=== PATIENT | male | born 1960 ===

== ENCOUNTER 2021-03-26 17:16 | Inpatient (IN) | payer SELFPAY ==
[~2021-03-26] VITALS: Ht 172.7 cm; Wt 157.2 kg
[2021-03-26] VITALS (13 sets, daily range): BP systolic 70–110; BP diastolic 42–56
[2021-03-26] MEDS: IV NORMAL SALINE 1000ML BAG 1,000 ML IV SCH ×2 (17:15→22:24)
[2021-03-26] MEDS: NOREPINEPHRINE VIAL 32 MG in IV D5W 250ML IV PRN ×2 (17:15→21:18)
[2021-03-26] MEDS: EPINEPHrine VIAL 5 MG in IV NORMAL SALINE 250ML 250 ML IV PRN ×2 (17:15→21:11)
[2021-03-26] MEDS ORDERED: SODIUM BICARB ADULT 8.4% 50 MEQ/50 ML DISP.SYRIN. IV ONE (17:30)
[2021-03-26] MEDS ORDERED: IV NORMAL SALINE 1000ML BAG 1,000 ML IV SCH (17:30)
[2021-03-26] MEDS ORDERED: NOREPINEPHRINE VIAL 8 MG in IV DEXTROSE 5% 250 ML IV PRN (17:30)
[2021-03-26] MEDS ORDERED: SODIUM BICARBONATE VIAL 50 MEQ in IV 1/2 NORMAL SALINE 1,000 ML IV PRN (17:30)
[2021-03-26 17:45] LABS: BASE EXCESS ABG -17 mmol/L (-3-3); CORRECTED PCO2 ABG 38 mmHg; CORRECTED PH ABG 7.12; CORRECTED PO2 ABG 67 mmHg; HCO3 ABG 12 mmol/L (21-28); SAT O2 ABG 93 % (92-99)
[2021-03-26] MEDS: VASOPRESSIN - VASOSTRICT 20 UNIT in IV DEXTROSE 5% 100ML 100 ML IV PRN (17:58)
[2021-03-26] MEDS ORDERED: MIDAZOLAM HCL/PF 5 MG/5 ML VIAL. IV ONE (18:00)
[2021-03-26] MEDS ORDERED: SODIUM BICARBONATE VIAL 100 MEQ in IV 1/2 NORMAL SALINE 1,000 ML IV PRN (18:00)
[2021-03-26 18:09] LABS: PCO2 ABG 42 mmHg (35-46)
[2021-03-26 18:10] LABS: FIO2 ABG 85%; PO2 ABG 79 mmHg (65-108)
[2021-03-26] MEDS: INSULIN REGULAR VIAL 100 UNIT in IV NORMAL SALINE 100ML 100 ML IV PRN (18:20)
--- NOTE | 2021-03-26 18:35 | NUR ---
1715 Received pt via EMS from [place]. Pt intubated with ETT in placed. Pt unresponsive. Arrived with the following gtts running: Epi at 0.1 mcg/kg/min, Levo at 1 mcg/kg/min, Insulin at 15 units / hour and NS wide open. Pt transferred over to our bed and attached to engine monitor, and vent. OG placed with positive gastric return. Srivastava in place with minimal output. no family listed. Completed as much of the admission questions as possible .
[2021-03-26 18:38] LABS: BASO % 0 % (0-3); EOS % 0 % (0-3); HEMATOCRIT 36.1 % (39.0-53.0); HEMOGLOBIN 11.1 g/dL (13.0-17.5); LYMPH # 0.9 x10^3/uL (1.0-4.8); LYMPH % 8 % (24-48); MEAN CORPUSCULAR HEMOGLOBIN 32 pg (25-35); MEAN CORPUSCULAR HGB CONC 31 g/dL (31-37); MEAN CORPUSCULAR VOLUME 102 fL (79-100); MONO # 0.1 x10^3/uL (0.0-1.1); MONO % 1 % (0-9); NEUT # 10.8 x10^3/uL (1.8-7.7); NEUT % 91 % (31-73); PLATELET COUNT 171 x10^3/uL (140-400); RED BLOOD COUNT 3.52 x10^6/uL (4.30-5.70); RED CELL DISTRIBUTION WIDTH 15.5 % (11.5-14.5); WHITE BLOOD COUNT 11.9 x10^3/uL (4.0-11.0)
[2021-03-26 19:01] LABS: CALCIUM 7.6 mg/dL (8.5-10.1); CREATININE 4.7 mg/dL (0.7-1.3); GFR 12.7
[2021-03-26 19:08] LABS: PHOSPHORUS 12.1 mg/dL (2.6-4.7)
[2021-03-26 19:09] LABS: POTASSIUM 6.3 mmol/L (3.5-5.1)
[2021-03-26 19:50] LABS: % BANDS 8 % (0-9); % LYMPHS 13 % (24-48); % METAS 1 % (0-0); % MONOS 1 % (0-10); % SEGS 77 % (35-66); PLT ESTIMATE ADEQUATE (ADEQUATE); TOXIC GRANULATION SLIGHT
[2021-03-26 23:33] LABS: CALCIUM 7.2 mg/dL (8.5-10.1); CREATININE 4.8 mg/dL (0.7-1.3); GFR 12.4; MAGNESIUM 2.7 mg/dL (1.8-2.4); PHOSPHORUS 5.2 mg/dL (2.6-4.7); POTASSIUM 4.6 mmol/L (3.5-5.1)
--- NOTE | 2021-03-26 23:46 | NUR ---
Patient in DKA and sedated after coding multiple times earlier today in [facility] ER. Transferred to [facility] ICU, Dr. Jiménez is primary. Dr. Menon, Dr. Buchanan, Dr. Pickering, and Dr. Green notified. Will see patient in the AM.
[2021-03-27] VITALS (31 sets, daily range): BP systolic 58–148; BP diastolic 31–67
[2021-03-27] MEDS: VASOPRESSIN - VASOSTRICT 20 UNIT in IV DEXTROSE 5% 100ML 100 ML IV PRN ×2 (00:03→07:25)
[2021-03-27] MEDS: EPINEPHrine VIAL 10 MG in IV NORMAL SALINE 250ML IV PRN ×6 (00:22→10:56)
[2021-03-27] MEDS: NOREPINEPHRINE VIAL 32 MG in IV D5W 250ML IV PRN ×4 (00:30→09:37)
--- NOTE | 2021-03-27 01:36 | RAD ---
EXAMINATION: XR CHEST 1V CLINICAL HISTORY: Low oxygen saturation, ET tube/OG tube placement EXAM DATE/TIME: 03/27/2021 12:42 AM COMPARISON: 03/26/2021 FINDINGS: Lines, Tubes, and Devices: Endotracheal and enteric tubes remain in similar satisfactory positions. Cardiomediastinal Silhouette: Cardiomegaly. Lungs and Pleura: Increased ill-defined centrilobular opacities, greater on the right. No evidence of pleural effusion or pneumothorax. Bones and Soft Tissues: Degenerative changes in the thoracic spine. IMPRESSION: Increased bilateral central airspace disease, greater on the right. Electronically signed by: Angelo Farfan DO (03/27/2021 1:33 AM) ANDREA
[2021-03-27] MEDS: IV NORMAL SALINE 1000ML BAG 1,000 ML IV SCH ×3 (01:39→09:05)
[2021-03-27] MEDS ORDERED: FUROSEMIDE 40 MG/4 ML VIAL. IVP ONE (02:15)
[2021-03-27] MEDS: INSULIN REGULAR VIAL 100 UNIT in IV NORMAL SALINE 100ML 100 ML IV PRN ×3 (03:09→09:43)
[2021-03-27 04:41] LABS: BASO % 0 % (0-3); EOS % 1 % (0-3); HEMATOCRIT 34.2 % (39.0-53.0); HEMOGLOBIN 10.3 g/dL (13.0-17.5); LYMPH # 0.5 x10^3/uL (1.0-4.8); LYMPH % 14 % (24-48); MEAN CORPUSCULAR HEMOGLOBIN 31 pg (25-35); MEAN CORPUSCULAR HGB CONC 30 g/dL (31-37); MEAN CORPUSCULAR VOLUME 103 fL (79-100); MONO # 0.1 x10^3/uL (0.0-1.1); MONO % 4 % (0-9); NEUT # 2.6 x10^3/uL (1.8-7.7); NEUT % 81 % (31-73); PLATELET COUNT 131 x10^3/uL (140-400); RED BLOOD COUNT 3.31 x10^6/uL (4.30-5.70); RED CELL DISTRIBUTION WIDTH 14.6 % (11.5-14.5); WHITE BLOOD COUNT 3.2 x10^3/uL (4.0-11.0)
[2021-03-27 05:12] LABS: ALBUMIN 1.7 g/dL (3.4-5.0); ALBUMIN/GLOBULIN RATIO 0.7 (1.0-1.7); CALCIUM 6.8 mg/dL (8.5-10.1); CREATININE 5.2 mg/dL (0.7-1.3); GFR 11.3; MAGNESIUM 2.5 mg/dL (1.8-2.4); PHOSPHORUS 4.9 mg/dL (2.6-4.7); POTASSIUM 4.6 mmol/L (3.5-5.1); TOTAL BILIRUBIN 2.6 mg/dL (0.2-1.0); TOTAL PROTEIN 4.2 g/dL (6.4-8.2)
--- NOTE | 2021-03-27 08:12 | PDOC1 ---
History and Physical Date of Service: DOS: DATE: 03/27/21 TIME: 08:02 Chief Complaint: Chief Complain: Cardiac arrest History of Present Illness: HPI: Patient is a 60-year-old male with past medical history of CAD, hypertension, dyslipidemia, diabetes who arrived at [facility] ER status post code and ongoing resuscitation. EMS was called at an apartment by a program development manager for an unwitnessed arrest with last known well time being about 40 minutes before EMS arrived. Apparently, the manager of digital noticed leaking water under the door and they were knocking on the door for about 35 minutes without response. Patient was found down and unresponsive and PEA. ACLS was started. Epinephrine was given 5 times and lactated Ringer's was given. Patient had ROSC obtained while in the ambulance and after 2 minutes of ROSC he went into V. fib and 3 times shocks was given and ROSC he was developed again. Upon arrival in the ED patient was kept on multiple vasopressors and family was contacted without any success. Upon arrival to [facility], patient was on multiple vasopressors, no appropriate response, no sedation, intubated on mechanical vent and very acidotic with multiorgan failure. Once again no family was able to be contacted. Past Medical/Surgical History: PMH/PSH: Cardiovascular: HTN, Hyperlipidemia Hepatobiliary: Cholelithiasis Endocrine: Diabetes Allergies: Allergies: Coded Allergies: Unable to Assess (Unverified , 03/26/21) Family History: Family History: Unable to obtain due to sedation and intubated. Reviewed in the chart with no relevant findings Social History: Social History: Unable to obtain due to sedation and intubated Current Medications: Current Medications Current Medications Norepinephrine Bitartrate 8 mg/ Dextrose 258 ml @ 29.606 mls/ hr CONT PRN IV PER PROTOCOL; Start 03/26/21 at 17:30; Status UNV Epinephrine HCl 5 mg/Sodium Chloride 255 ml @ 46.818 mls/ hr CONT PRN IV SEE I/O RECORD Last administered on 03/26/21at 21:11; Start 03/26/21 at 17:30; Stop 03/27/21 at 00:09; Status DC Norepinephrine Bitartrate 32 mg/ Dextrose 250 ml @ 4.688 mls/ hr CONT PRN IV SEE I/O RECORD Last administered on 03/27/21at 07:25; Start 03/26/21 at 17:45 Sodium Bicarbonate (Sodium Bicarb Adult 8.4% Syr) 100 meq 1X ONCE IV Last administered on 03/26/21at 17:30; Start 03/26/21 at 17:30; Stop 03/26/21 at 17:35; Status DC Sodium Chloride 1,000 ml @ 1,000 mls/hr Q1H IV Last administered on 03/26/21at 17:56; Start 03/26/21 at 17:30; Stop 03/26/21 at 18:29; Status DC Sodium Chloride 1,000 ml @ 250 mls/hr Q4H IV Last administered on 03/27/21at 04:14; Start 03/26/21 at 17:45 Insulin Human Regular 100 unit/ Sodium Chloride 101 ml @ 0 mls/hr CONT PRN PRN IV PER PROTOCOL Last administered on 03/27/21at 07:24; Start 03/26/21 at 17:30 Sodium Bicarbonate 50 meq/Sodium Chloride 1,050 ml @ 500 mls/hr Q2H6M PRN IV SEE COMMENTS; Start 03/26/21 at 17:30; Stop 03/26/21 at 17:46; Status DC Vasopressin 20 unit/Dextrose 101 ml @ 12 mls/hr CONT PRN IV SEE I/O RECORD Last administered on 03/27/21at 07:25; Start 03/26/21 at 17:45 Sodium Bicarbonate 100 meq/Sodium Chloride 1,100 ml @ 100 mls/hr Q11H PRN IV SEE COMMENTS; Start 03/26/21 at 18:00 Midazolam HCl (Versed) 5 mg 1X ONCE IV Last administered on 03/26/21at 17:57; Start 03/26/21 at 18:00; Stop 03/26/21 at 18:01; Status DC Epinephrine HCl 10 mg/Sodium Chloride 250 ml @ 22.95 mls/ hr CONT PRN IV SEE I/O RECORD Last administered on 03/27/21at 07:23; Start 03/27/21 at 00:15 Furosemide (Lasix) 60 mg 1X ONCE IVP Last administered on 03/27/21at 02:11; Start 03/27/21 at 02:15; Stop 03/27/21 at 02:16; Status DC ROS: Review of Systems Review of System Unable to obtain due to sedation and intubated Physical Exam: Vital Signs: Vital Signs Date Time Temp Pulse Resp B/P (MAP) Pulse Ox O2 Delivery O2 Flow Rate FiO2 03/27/21 06:00 99.7 104 30 83/52 93 Ventilator 99.7 Physcial Exam: General: Sedated and intubated HEENT: Pupils equal and fixed, EOMI, no discharge, normal conjunctiva Neck: Supple, no nuchal rigidity, no JVD, trachea midline, no tenderness Cardiac: RRR, no murmurs, no gallops, no rubs Chest/Lungs: CTAB, no wheeze, no rhonchi, no crackles Abdomen: Soft, distended, obese, hypoactive bowel sounds Back: No step-offs or deformities Extremities: +3 pedal edema Neuro: Sedated and intubated Labs: Labs: Laboratory Tests Test 03/26/21 17:30 03/26/21 18:03 03/26/21 20:09 03/26/21 21:16 O2 Saturation 93 % (92-99) Arterial Blood pH 7.09 (7.35-7.45) Arterial Blood pH (Temp corrected) 7.12 Arterial Blood pCO2 at Patient Temp 42 mmHg (35-46) Arterial Blood pCO2 (Temp correct) 38 mmHg Arterial Blood pO2 at Patient Temp 79 mmHg (65-108) Arterial Blood pO2 (Temp corrected) 67 mmHg Arterial Blood HCO3 12 mmol/L (21-28) Arterial Blood Base Excess -17 mmol/L (-3-3) FiO2 85% White Blood Count 11.9 x10^3/uL (4.0-11.0) Red Blood Count 3.52 x10^6/uL (4.30-5.70) Hemoglobin 11.1 g/dL (13.0-17.5) Hematocrit 36.1 % (39.0-53.0) Mean Corpuscular Volume 102 fL (79-100) Mean Corpuscular Hemoglobin 32 pg (25-35) Mean Corpuscular Hemoglobin Concent 31 g/dL (31-37) Red Cell Distribution Width 15.5 % (11.5-14.5) Platelet Count 171 x10^3/uL (140-400) Neutrophils (%) (Auto) 91 % (31-73) Lymphocytes (%) (Auto) 8 % (24-48) Monocytes (%) (Auto) 1 % (0-9) Eosinophils (%) (Auto) 0 % (0-3) Basophils (%) (Auto) 0 % (0-3) Neutrophils # (Auto) 10.8 x10^3/uL (1.8-7.7) Lymphocytes # (Auto) 0.9 x10^3/uL (1.0-4.8) Monocytes # (Auto) 0.1 x10^3/uL (0.0-1.1) Eosinophils # (Auto) 0.0 x10^3/uL (0.0-0.7) Basophils # (Auto) 0.0 x10^3/uL (0.0-0.2) Segmented Neutrophils % 77 % (35-66) Band Neutrophils % 8 % (0-9) Lymphocytes % 13 % (24-48) Monocytes % 1 % (0-10) Metamyelocytes % 1 % (0-0) Toxic Granulation Slight Platelet Estimate Adequate (ADEQUATE) Sodium Level 133 mmol/L (136-145) Potassium Level 6.3 mmol/L (3.5-5.1) Chloride Level 93 mmol/L (98-107) Carbon Dioxide Level 15 mmol/L (21-32) Anion Gap 25 (6-14) Blood Urea Nitrogen 61 mg/dL (8-26) Creatinine 4.7 mg/dL (0.7-1.3) Estimated GFR (Cockcroft-Gault) 12.7 Glucose Level 695 mg/dL (70-99) Calcium Level 7.6 mg/dL (8.5-10.1) Phosphorus Level 12.1 mg/dL (2.6-4.7) Magnesium Level 3.0 mg/dL (1.8-2.4) Glucose (Fingerstick) 585 mg/dL (70-99) 503 mg/dL (70-99) Test 03/26/21 23:00 03/27/21 00:44 03/27/21 02:08 03/27/21 03:24 Sodium Level 134 mmol/L (136-145) Potassium Level 4.6 mmol/L (3.5-5.1) Chloride Level 96 mmol/L (98-107) Carbon Dioxide Level 16 mmol/L (21-32) Anion Gap 22 (6-14) Blood Urea Nitrogen 67 mg/dL (8-26) Creatinine 4.8 mg/dL (0.7-1.3) Estimated GFR (Cockcroft-Gault) 12.4 Glucose Level 610 mg/dL (70-99) Calcium Level 7.2 mg/dL (8.5-10.1) Phosphorus Level 5.2 mg/dL (2.6-4.7) Magnesium Level 2.7 mg/dL (1.8-2.4) Glucose (Fingerstick) 413 mg/dL (70-99) 446 mg/dL (70-99) 391 mg/dL (70-99) Test 03/27/21 04:20 03/27/21 04:31 03/27/21 06:41 03/27/21 07:45 White Blood Count 3.2 x10^3/uL (4.0-11.0) Red Blood Count 3.31 x10^6/uL (4.30-5.70) Hemoglobin 10.3 g/dL (13.0-17.5) Hematocrit 34.2 % (39.0-53.0) Mean Corpuscular Volume 103 fL (79-100) Mean Corpuscular Hemoglobin 31 pg (25-35) Mean Corpuscular Hemoglobin Concent 30 g/dL (31-37) Red Cell Distribution Width 14.6 % (11.5-14.5) Platelet Count 131 x10^3/uL (140-400) Neutrophils (%) (Auto) 81 % (31-73) Lymphocytes (%) (Auto) 14 % (24-48) Monocytes (%) (Auto) 4 % (0-9) Eosinophils (%) (Auto) 1 % (0-3) Basophils (%) (Auto) 0 % (0-3) Neutrophils # (Auto) 2.6 x10^3/uL (1.8-7.7) Lymphocytes # (Auto) 0.5 x10^3/uL (1.0-4.8) Monocytes # (Auto) 0.1 x10^3/uL (0.0-1.1) Eosinophils # (Auto) 0.0 x10^3/uL (0.0-0.7) Basophils # (Auto) 0.0 x10^3/uL (0.0-0.2) Sodium Level 136 mmol/L (136-145) Potassium Level 4.6 mmol/L (3.5-5.1) Chloride Level 101 mmol/L (98-107) Carbon Dioxide Level 12 mmol/L (21-32) Anion Gap 23 (6-14) Blood Urea Nitrogen 68 mg/dL (8-26) Creatinine 5.2 mg/dL (0.7-1.3) Estimated GFR (Cockcroft-Gault) 11.3 BUN/Creatinine Ratio 13 (6-20) Glucose Level 417 mg/dL (70-99) Lactic Acid Level 12.0 mmol/L (0.4-2.0) Calcium Level 6.8 mg/dL (8.5-10.1) Phosphorus Level 4.9 mg/dL (2.6-4.7) Magnesium Level 2.5 mg/dL (1.8-2.4) Total Bilirubin 2.6 mg/dL (0.2-1.0) Aspartate Amino Transf (AST/SGOT) 5590 U/L (15-37) Alanine Aminotransferase (ALT/SGPT) 1605 U/L (16-63) Alkaline Phosphatase 118 U/L (46-116) Total Protein 4.2 g/dL (6.4-8.2) Albumin 1.7 g/dL (3.4-5.0) Albumin/Globulin Ratio 0.7 (1.0-1.7) Glucose (Fingerstick) 437 mg/dL (70-99) 321 mg/dL (70-99) 271 mg/dL (70-99) Laboratory Tests Test 03/26/21 17:30 03/26/21 18:03 03/26/21 20:09 03/26/21 21:16 O2 Saturation 93 % (92-99) Arterial Blood pH 7.09 (7.35-7.45) Arterial Blood pH (Temp corrected) 7.12 Arterial Blood pCO2 at Patient Temp 42 mmHg (35-46) Arterial Blood pCO2 (Temp correct) 38 mmHg Arterial Blood pO2 at Patient Temp 79 mmHg (65-108) Arterial Blood pO2 (Temp corrected) 67 mmHg Arterial Blood HCO3 12 mmol/L (21-28) Arterial Blood Base Excess -17 mmol/L (-3-3) FiO2 85% White Blood Count 11.9 x10^3/uL (4.0-11.0) Red Blood Count 3.52 x10^6/uL (4.30-5.70) Hemoglobin 11.1 g/dL (13.0-17.5) Hematocrit 36.1 % (39.0-53.0) Mean Corpuscular Volume 102 fL (79-100) Mean Corpuscular Hemoglobin 32 pg (25-35) Mean Corpuscular Hemoglobin Concent 31 g/dL (31-37) Red Cell Distribution Width 15.5 % (11.5-14.5) Platelet Count 171 x10^3/uL (140-400) Neutrophils (%) (Auto) 91 % (31-73) Lymphocytes (%) (Auto) 8 % (24-48) Monocytes (%) (Auto) 1 % (0-9) Eosinophils (%) (Auto) 0 % (0-3) Basophils (%) (Auto) 0 % (0-3) Neutrophils # (Auto) 10.8 x10^3/uL (1.8-7.7) Lymphocytes # (Auto) 0.9 x10^3/uL (1.0-4.8) Monocytes # (Auto) 0.1 x10^3/uL (0.0-1.1) Eosinophils # (Auto) 0.0 x10^3/uL (0.0-0.7) Basophils # (Auto) 0.0 x10^3/uL (0.0-0.2) Segmented Neutrophils % 77 % (35-66) Band Neutrophils % 8 % (0-9) Lymphocytes % 13 % (24-48) Monocytes % 1 % (0-10) Metamyelocytes % 1 % (0-0) Toxic Granulation Slight Platelet Estimate Adequate (ADEQUATE) Sodium Level 133 mmol/L (136-145) Potassium Level 6.3 mmol/L (3.5-5.1) Chloride Level 93 mmol/L (98-107) Carbon Dioxide Level 15 mmol/L (21-32) Anion Gap 25 (6-14) Blood Urea Nitrogen 61 mg/dL (8-26) Creatinine 4.7 mg/dL (0.7-1.3) Estimated GFR (Cockcroft-Gault) 12.7 Glucose Level 695 mg/dL (70-99) Calcium Level 7.6 mg/dL (8.5-10.1) Phosphorus Level 12.1 mg/dL (2.6-4.7) Magnesium Level 3.0 mg/dL (1.8-2.4) Glucose (Fingerstick) 585 mg/dL (70-99) 503 mg/dL (70-99) Test 03/26/21 23:00 03/27/21 00:44 03/27/21 02:08 03/27/21 03:24 Sodium Level 134 mmol/L (136-145) Potassium Level 4.6 mmol/L (3.5-5.1) Chloride Level 96 mmol/L (98-107) Carbon Dioxide Level 16 mmol/L (21-32) Anion Gap 22 (6-14) Blood Urea Nitrogen 67 mg/dL (8-26) Creatinine 4.8 mg/dL (0.7-1.3) Estimated GFR (Cockcroft-Gault) 12.4 Glucose Level 610 mg/dL (70-99) Calcium Level 7.2 mg/dL (8.5-10.1) Phosphorus Level 5.2 mg/dL (2.6-4.7) Magnesium Level 2.7 mg/dL (1.8-2.4) Glucose (Fingerstick) 413 mg/dL (70-99) 446 mg/dL (70-99) 391 mg/dL (70-99) Test 03/27/21 04:20 03/27/21 04:31 03/27/21 06:41 03/27/21 07:45 White Blood Count 3.2 x10^3/uL (4.0-11.0) Red Blood Count 3.31 x10^6/uL (4.30-5.70) Hemoglobin 10.3 g/dL (13.0-17.5) Hematocrit 34.2 % (39.0-53.0) Mean Corpuscular Volume 103 fL (79-100) Mean Corpuscular Hemoglobin 31 pg (25-35) Mean Corpuscular Hemoglobin Concent 30 g/dL (31-37) Red Cell Distribution Width 14.6 % (11.5-14.5) Platelet Count 131 x10^3/uL (140-400) Neutrophils (%) (Auto) 81 % (31-73) Lymphocytes (%) (Auto) 14 % (24-48) Monocytes (%) (Auto) 4 % (0-9) Eosinophils (%) (Auto) 1 % (0-3) Basophils (%) (Auto) 0 % (0-3) Neutrophils # (Auto) 2.6 x10^3/uL (1.8-7.7) Lymphocytes # (Auto) 0.5 x10^3/uL (1.0-4.8) Monocytes # (Auto) 0.1 x10^3/uL (0.0-1.1) Eosinophils # (Auto) 0.0 x10^3/uL (0.0-0.7) Basophils # (Auto) 0.0 x10^3/uL (0.0-0.2) Sodium Level 136 mmol/L (136-145) Potassium Level 4.6 mmol/L (3.5-5.1) Chloride Level 101 mmol/L (98-107) Carbon Dioxide Level 12 mmol/L (21-32) Anion Gap 23 (6-14) Blood Urea Nitrogen 68 mg/dL (8-26) Creatinine 5.2 mg/dL (0.7-1.3) Estimated GFR (Cockcroft-Gault) 11.3 BUN/Creatinine Ratio 13 (6-20) Glucose Level 417 mg/dL (70-99) Lactic Acid Level 12.0 mmol/L (0.4-2.0) Calcium Level 6.8 mg/dL (8.5-10.1) Phosphorus Level 4.9 mg/dL (2.6-4.7) Magnesium Level 2.5 mg/dL (1.8-2.4) Total Bilirubin 2.6 mg/dL (0.2-1.0) Aspartate Amino Transf (AST/SGOT) 5590 U/L (15-37) Alanine Aminotransferase (ALT/SGPT) 1605 U/L (16-63) Alkaline Phosphatase 118 U/L (46-116) Total Protein 4.2 g/dL (6.4-8.2) Albumin 1.7 g/dL (3.4-5.0) Albumin/Globulin Ratio 0.7 (1.0-1.7) Glucose (Fingerstick) 437 mg/dL (70-99) 321 mg/dL (70-99) 271 mg/dL (70-99) Images: Images PROCEDURE: PORTABLE CHEST 1V EXAMINATION: XR CHEST 1V CLINICAL HISTORY: Low oxygen saturation, ET tube/OG tube placement EXAM DATE/TIME: 03/27/2021 12:42 AM COMPARISON: 03/26/2021 FINDINGS: Lines, Tubes, and Devices: Endotracheal and enteric tubes remain in similar satisfactory positions. Cardiomediastinal Silhouette: Cardiomegaly. Lungs and Pleura: Increased ill-defined centrilobular opacities, greater on the right. No evidence of pleural effusion or pneumothorax. Bones and Soft Tissues: Degenerative changes in the thoracic spine. IMPRESSION: Increased bilateral central airspace disease, greater on the right. Assessment/Plan Assessment/Plan Septic shock Cardiogenic shock Status post cardiac arrest, at least 1 hour until ROSC Acute respiratory failure requiring intubation Bilateral pneumonia right greater than left, gram-negative organisms, possible aspiration Hemodynamically unstable V. tach/V. fib DKA Anion gap metabolic acidosis LISSETTE due to vasomotor nephropathy Acute electrolyte derangementshyponatremia, hypochloremia, hypermagnesemia, hypocalcemia due to abnormal renal function Severe transaminitis due to shock liver Lactic acidosis Admit to ICU for further management Neurology consult for neuro examination after hypothermia protocol Cardiology consult for V. tach/V. fib management Nephrology consult for LISSETTE Pulmonology consult for vent management ABG on admission pending urine and blood ketones Pending plasma osmolarity Continue serial inspections and examination for sources that caused ketoacidotic state Continue IV insulin starting at 0.1 units per kg When glucose is less than 200, AG is closed, patient able to eat, and HCO3 greater than 15, then transition with subcu insulin 0.1 units/kg every 2 hours for at least 2 hours Continue IV fluids of 1 to 1.5 L/h until a total of 5 L is replenished Switch to one half NS at half the rate if NA is normal or elevated As needed D50 W or add D5 to IV fluids if Accu-Cheks are less than 200 Maintain potassium between 3.5-5, if potassium falls below 3.3, stop insulin and add 40 mEq/h of potassium Maintained p.o. 3 greater than 1.0 If arterial pH is below 6.9, give 100 mEq of sodium bicarb +20 mEq of potassium Every 2-4 hours BMP and a be checked until stable Every hour Accu-Cheks while on insulin Will consider starting tube feeds at trickle rate after vasopressors have been reduced or stopped SCD and heparin once all bleeding has been ruled out for DVT prophylaxis Protonix for stress ulcer GI prophylaxis N.p.o. CODE STATUS unknown Discussed with RN and SW Disposition pending hypothermia protocol to complete and doing apnea test DPOA: Undesignated and unknown A total of 55 minutes of critical care time was spent in reviewing chart, labs, and images. Discussed with RN and SW. very poor prognosis Justifications for Admission Other Justification ELLI FOSTER MD Mar 27, 2021 08:12
[2021-03-27] MEDS ORDERED: SODIUM BICARB ADULT 8.4% 50 MEQ/50 ML DISP.SYRIN. ONE (08:35)
[2021-03-27] MEDS ORDERED: SODIUM BICARB ADULT 8.4% 50 MEQ/50 ML DISP.SYRIN. IV ONE ×3 (08:45→10:45)
[2021-03-27] MEDS: PHENYLEPHRINE INJ 50 MG in IV NORMAL SALINE 250ML 250 ML IV PRN ×2 (08:47→11:43)
--- NOTE | 2021-03-27 08:49 | PDOC ---
PULMONARY PROGRESS NOTES DATE: 03/27/21 TIME: 08:49 Vitals Vital Signs Date Time Temp Pulse Resp B/P (MAP) Pulse Ox O2 Delivery O2 Flow Rate FiO2 03/27/21 06:00 99.7 104 30 83/52 93 Ventilator 99.7 Labs Laboratory Tests Test 03/26/21 17:30 03/26/21 18:03 03/26/21 20:09 03/26/21 21:16 O2 Saturation 93 % (92-99) Arterial Blood pH 7.09 (7.35-7.45) Arterial Blood pH (Temp corrected) 7.12 Arterial Blood pCO2 at Patient Temp 42 mmHg (35-46) Arterial Blood pCO2 (Temp correct) 38 mmHg Arterial Blood pO2 at Patient Temp 79 mmHg (65-108) Arterial Blood pO2 (Temp corrected) 67 mmHg Arterial Blood HCO3 12 mmol/L (21-28) Arterial Blood Base Excess -17 mmol/L (-3-3) FiO2 85% White Blood Count 11.9 x10^3/uL (4.0-11.0) Red Blood Count 3.52 x10^6/uL (4.30-5.70) Hemoglobin 11.1 g/dL (13.0-17.5) Hematocrit 36.1 % (39.0-53.0) Mean Corpuscular Volume 102 fL (79-100) Mean Corpuscular Hemoglobin 32 pg (25-35) Mean Corpuscular Hemoglobin Concent 31 g/dL (31-37) Red Cell Distribution Width 15.5 % (11.5-14.5) Platelet Count 171 x10^3/uL (140-400) Neutrophils (%) (Auto) 91 % (31-73) Lymphocytes (%) (Auto) 8 % (24-48) Monocytes (%) (Auto) 1 % (0-9) Eosinophils (%) (Auto) 0 % (0-3) Basophils (%) (Auto) 0 % (0-3) Neutrophils # (Auto) 10.8 x10^3/uL (1.8-7.7) Lymphocytes # (Auto) 0.9 x10^3/uL (1.0-4.8) Monocytes # (Auto) 0.1 x10^3/uL (0.0-1.1) Eosinophils # (Auto) 0.0 x10^3/uL (0.0-0.7) Basophils # (Auto) 0.0 x10^3/uL (0.0-0.2) Segmented Neutrophils % 77 % (35-66) Band Neutrophils % 8 % (0-9) Lymphocytes % 13 % (24-48) Monocytes % 1 % (0-10) Metamyelocytes % 1 % (0-0) Toxic Granulation Slight Platelet Estimate Adequate (ADEQUATE) Sodium Level 133 mmol/L (136-145) Potassium Level 6.3 mmol/L (3.5-5.1) Chloride Level 93 mmol/L (98-107) Carbon Dioxide Level 15 mmol/L (21-32) Anion Gap 25 (6-14) Blood Urea Nitrogen 61 mg/dL (8-26) Creatinine 4.7 mg/dL (0.7-1.3) Estimated GFR (Cockcroft-Gault) 12.7 Glucose Level 695 mg/dL (70-99) Calcium Level 7.6 mg/dL (8.5-10.1) Phosphorus Level 12.1 mg/dL (2.6-4.7) Magnesium Level 3.0 mg/dL (1.8-2.4) Glucose (Fingerstick) 585 mg/dL (70-99) 503 mg/dL (70-99) Test 03/26/21 23:00 03/27/21 00:44 03/27/21 02:08 03/27/21 03:24 Sodium Level 134 mmol/L (136-145) Potassium Level 4.6 mmol/L (3.5-5.1) Chloride Level 96 mmol/L (98-107) Carbon Dioxide Level 16 mmol/L (21-32) Anion Gap 22 (6-14) Blood Urea Nitrogen 67 mg/dL (8-26) Creatinine 4.8 mg/dL (0.7-1.3) Estimated GFR (Cockcroft-Gault) 12.4 Glucose Level 610 mg/dL (70-99) Calcium Level 7.2 mg/dL (8.5-10.1) Phosphorus Level 5.2 mg/dL (2.6-4.7) Magnesium Level 2.7 mg/dL (1.8-2.4) Glucose (Fingerstick) 413 mg/dL (70-99) 446 mg/dL (70-99) 391 mg/dL (70-99) Test 03/27/21 04:20 03/27/21 04:31 03/27/21 06:41 03/27/21 07:45 White Blood Count 3.2 x10^3/uL (4.0-11.0) Red Blood Count 3.31 x10^6/uL (4.30-5.70) Hemoglobin 10.3 g/dL (13.0-17.5) Hematocrit 34.2 % (39.0-53.0) Mean Corpuscular Volume 103 fL (79-100) Mean Corpuscular Hemoglobin 31 pg (25-35) Mean Corpuscular Hemoglobin Concent 30 g/dL (31-37) Red Cell Distribution Width 14.6 % (11.5-14.5) Platelet Count 131 x10^3/uL (140-400) Neutrophils (%) (Auto) 81 % (31-73) Lymphocytes (%) (Auto) 14 % (24-48) Monocytes (%) (Auto) 4 % (0-9) Eosinophils (%) (Auto) 1 % (0-3) Basophils (%) (Auto) 0 % (0-3) Neutrophils # (Auto) 2.6 x10^3/uL (1.8-7.7) Lymphocytes # (Auto) 0.5 x10^3/uL (1.0-4.8) Monocytes # (Auto) 0.1 x10^3/uL (0.0-1.1) Eosinophils # (Auto) 0.0 x10^3/uL (0.0-0.7) Basophils # (Auto) 0.0 x10^3/uL (0.0-0.2) Sodium Level 136 mmol/L (136-145) Potassium Level 4.6 mmol/L (3.5-5.1) Chloride Level 101 mmol/L (98-107) Carbon Dioxide Level 12 mmol/L (21-32) Anion Gap 23 (6-14) Blood Urea Nitrogen 68 mg/dL (8-26) Creatinine 5.2 mg/dL (0.7-1.3) Estimated GFR (Cockcroft-Gault) 11.3 BUN/Creatinine Ratio 13 (6-20) Glucose Level 417 mg/dL (70-99) Lactic Acid Level 12.0 mmol/L (0.4-2.0) Calcium Level 6.8 mg/dL (8.5-10.1) Phosphorus Level 4.9 mg/dL (2.6-4.7) Magnesium Level 2.5 mg/dL (1.8-2.4) Total Bilirubin 2.6 mg/dL (0.2-1.0) Aspartate Amino Transf (AST/SGOT) 5590 U/L (15-37) Alanine Aminotransferase (ALT/SGPT) 1605 U/L (16-63) Alkaline Phosphatase 118 U/L (46-116) Total Protein 4.2 g/dL (6.4-8.2) Albumin 1.7 g/dL (3.4-5.0) Albumin/Globulin Ratio 0.7 (1.0-1.7) Glucose (Fingerstick) 437 mg/dL (70-99) 321 mg/dL (70-99) 271 mg/dL (70-99) Laboratory Tests Test 03/26/21 17:30 03/26/21 18:03 03/26/21 20:09 03/26/21 21:16 O2 Saturation 93 % (92-99) Arterial Blood pH 7.09 (7.35-7.45) Arterial Blood pH (Temp corrected) 7.12 Arterial Blood pCO2 at Patient Temp 42 mmHg (35-46) Arterial Blood pCO2 (Temp correct) 38 mmHg Arterial Blood pO2 at Patient Temp 79 mmHg (65-108) Arterial Blood pO2 (Temp corrected) 67 mmHg Arterial Blood HCO3 12 mmol/L (21-28) Arterial Blood Base Excess -17 mmol/L (-3-3) FiO2 85% White Blood Count 11.9 x10^3/uL (4.0-11.0) Red Blood Count 3.52 x10^6/uL (4.30-5.70) Hemoglobin 11.1 g/dL (13.0-17.5) Hematocrit 36.1 % (39.0-53.0) Mean Corpuscular Volume 102 fL (79-100) Mean Corpuscular Hemoglobin 32 pg (25-35) Mean Corpuscular Hemoglobin Concent 31 g/dL (31-37) Red Cell Distribution Width 15.5 % (11.5-14.5) Platelet Count 171 x10^3/uL (140-400) Neutrophils (%) (Auto) 91 % (31-73) Lymphocytes (%) (Auto) 8 % (24-48) Monocytes (%) (Auto) 1 % (0-9) Eosinophils (%) (Auto) 0 % (0-3) Basophils (%) (Auto) 0 % (0-3) Neutrophils # (Auto) 10.8 x10^3/uL (1.8-7.7) Lymphocytes # (Auto) 0.9 x10^3/uL (1.0-4.8) Monocytes # (Auto) 0.1 x10^3/uL (0.0-1.1) Eosinophils # (Auto) 0.0 x10^3/uL (0.0-0.7) Basophils # (Auto) 0.0 x10^3/uL (0.0-0.2) Segmented Neutrophils % 77 % (35-66) Band Neutrophils % 8 % (0-9) Lymphocytes % 13 % (24-48) Monocytes % 1 % (0-10) Metamyelocytes % 1 % (0-0) Toxic Granulation Slight Platelet Estimate Adequate (ADEQUATE) Sodium Level 133 mmol/L (136-145) Potassium Level 6.3 mmol/L (3.5-5.1) Chloride Level 93 mmol/L (98-107) Carbon Dioxide Level 15 mmol/L (21-32) Anion Gap 25 (6-14) Blood Urea Nitrogen 61 mg/dL (8-26) Creatinine 4.7 mg/dL (0.7-1.3) Estimated GFR (Cockcroft-Gault) 12.7 Glucose Level 695 mg/dL (70-99) Calcium Level 7.6 mg/dL (8.5-10.1) Phosphorus Level 12.1 mg/dL (2.6-4.7) Magnesium Level 3.0 mg/dL (1.8-2.4) Glucose (Fingerstick) 585 mg/dL (70-99) 503 mg/dL (70-99) Test 03/26/21 23:00 03/27/21 00:44 03/27/21 02:08 03/27/21 03:24 Sodium Level 134 mmol/L (136-145) Potassium Level 4.6 mmol/L (3.5-5.1) Chloride Level 96 mmol/L (98-107) Carbon Dioxide Level 16 mmol/L (21-32) Anion Gap 22 (6-14) Blood Urea Nitrogen 67 mg/dL (8-26) Creatinine 4.8 mg/dL (0.7-1.3) Estimated GFR (Cockcroft-Gault) 12.4 Glucose Level 610 mg/dL (70-99) Calcium Level 7.2 mg/dL (8.5-10.1) Phosphorus Level 5.2 mg/dL (2.6-4.7) Magnesium Level 2.7 mg/dL (1.8-2.4) Glucose (Fingerstick) 413 mg/dL (70-99) 446 mg/dL (70-99) 391 mg/dL (70-99) Test 03/27/21 04:20 03/27/21 04:31 03/27/21 06:41 03/27/21 07:45 White Blood Count 3.2 x10^3/uL (4.0-11.0) Red Blood Count 3.31 x10^6/uL (4.30-5.70) Hemoglobin 10.3 g/dL (13.0-17.5) Hematocrit 34.2 % (39.0-53.0) Mean Corpuscular Volume 103 fL (79-100) Mean Corpuscular Hemoglobin 31 pg (25-35) Mean Corpuscular Hemoglobin Concent 30 g/dL (31-37) Red Cell Distribution Width 14.6 % (11.5-14.5) Platelet Count 131 x10^3/uL (140-400) Neutrophils (%) (Auto) 81 % (31-73) Lymphocytes (%) (Auto) 14 % (24-48) Monocytes (%) (Auto) 4 % (0-9) Eosinophils (%) (Auto) 1 % (0-3) Basophils (%) (Auto) 0 % (0-3) Neutrophils # (Auto) 2.6 x10^3/uL (1.8-7.7) Lymphocytes # (Auto) 0.5 x10^3/uL (1.0-4.8) Monocytes # (Auto) 0.1 x10^3/uL (0.0-1.1) Eosinophils # (Auto) 0.0 x10^3/uL (0.0-0.7) Basophils # (Auto) 0.0 x10^3/uL (0.0-0.2) Sodium Level 136 mmol/L (136-145) Potassium Level 4.6 mmol/L (3.5-5.1) Chloride Level 101 mmol/L (98-107) Carbon Dioxide Level 12 mmol/L (21-32) Anion Gap 23 (6-14) Blood Urea Nitrogen 68 mg/dL (8-26) Creatinine 5.2 mg/dL (0.7-1.3) Estimated GFR (Cockcroft-Gault) 11.3 BUN/Creatinine Ratio 13 (6-20) Glucose Level 417 mg/dL (70-99) Lactic Acid Level 12.0 mmol/L (0.4-2.0) Calcium Level 6.8 mg/dL (8.5-10.1) Phosphorus Level 4.9 mg/dL (2.6-4.7) Magnesium Level 2.5 mg/dL (1.8-2.4) Total Bilirubin 2.6 mg/dL (0.2-1.0) Aspartate Amino Transf (AST/SGOT) 5590 U/L (15-37) Alanine Aminotransferase (ALT/SGPT) 1605 U/L (16-63) Alkaline Phosphatase 118 U/L (46-116) Total Protein 4.2 g/dL (6.4-8.2) Albumin 1.7 g/dL (3.4-5.0) Albumin/Globulin Ratio 0.7 (1.0-1.7) Glucose (Fingerstick) 437 mg/dL (70-99) 321 mg/dL (70-99) 271 mg/dL (70-99) Impression . Full consult dictated Acute respiratory failure secondary to out of hospital cardiac arrest V. tach Multiorgan failure Brain suspect Recommend withdrawal of care, will await neurology input DORIS JUDGE MD Mar 27, 2021 08:49
[2021-03-27 08:58] LABS: BASE EXCESS ABG -20 mmol/L (-3-3); HCO3 ABG 10 mmol/L (21-28); PCO2 ABG 43 mmHg (35-46); PO2 ABG 73 mmHg (65-108); SAT O2 ABG 90 % (92-99)
[2021-03-27] MEDS ORDERED: IV DEXTROSE 5% - 0.9 % NACL 1,000 ML IV SCH (09:15)
--- NOTE | 2021-03-27 09:31 | PDOC2 ---
CONSULT Date of Consult Date of Consult DATE: 03/27/21 TIME: 09:18 Reason for Consult Reason for Consult: LISSETTE Identification/Chief Complaint Chief Complaint Unable to Obtain 2/2 Unresponsive, on MV Source Source: Chart review History of Present Illness Reason for Visit: History obtained from CHART Review and Nursing Patient is a 60 yo CM with HTN, insulin dependent DM admitted for OOH cardiac arrest, transferred from [facility] . He was found unresponsive in his apartment 30-35 mins later- after he called maintenance to fix water leak in his apartment . He had several VTs and coded multiple times between EMS and ER .No known hx of CAD Nephrology stat consult called last night for LISSETTE - per Nursing reports Abnormal head CT with no contreras and white matter differentiation , Pupils fixed, No gag reflex, Coded x 5 times , BS was 800 , bicarb 6 improved to 12 with Bicarb gtt , was on 3 Pessors pressors, intubated with vent . Continued on DKA protocol, Bicarb gtt . Currently he is on 4 pressors , MultiOrgan failure . Awaiting Neurology Eval Unable to locate any family members Past Medical History Past Medical History HTN, DM, Obese Past Surgical History Past Surgical History Unable to Obtain Family History Family History Unable to Obtain Social History Social History Unable to Obtain Current Medications Current Medications Current Medications Norepinephrine Bitartrate 8 mg/ Dextrose 258 ml @ 29.606 mls/ hr CONT PRN IV PER PROTOCOL; Start 03/26/21 at 17:30; Status UNV Epinephrine HCl 5 mg/Sodium Chloride 255 ml @ 46.818 mls/ hr CONT PRN IV SEE I/O RECORD Last administered on 03/26/21at 21:11; Start 03/26/21 at 17:30; Stop 03/27/21 at 00:09; Status DC Norepinephrine Bitartrate 32 mg/ Dextrose 250 ml @ 4.688 mls/ hr CONT PRN IV SEE I/O RECORD Last administered on 03/27/21at 07:25; Start 03/26/21 at 17:45 Sodium Bicarbonate (Sodium Bicarb Adult 8.4% Syr) 100 meq 1X ONCE IV Last administered on 03/26/21at 17:30; Start 03/26/21 at 17:30; Stop 03/26/21 at 17:35; Status DC Sodium Chloride 1,000 ml @ 1,000 mls/hr Q1H IV Last administered on 03/26/21at 17:56; Start 03/26/21 at 17:30; Stop 03/26/21 at 18:29; Status DC Sodium Chloride 1,000 ml @ 250 mls/hr Q4H IV Last administered on 03/27/21at 09:05; Start 03/26/21 at 17:45 Insulin Human Regular 100 unit/ Sodium Chloride 101 ml @ 0 mls/hr CONT PRN PRN IV PER PROTOCOL Last administered on 03/27/21at 07:24; Start 03/26/21 at 17:30 Sodium Bicarbonate 50 meq/Sodium Chloride 1,050 ml @ 500 mls/hr Q2H6M PRN IV SEE COMMENTS; Start 03/26/21 at 17:30; Stop 03/26/21 at 17:46; Status DC Vasopressin 20 unit/Dextrose 101 ml @ 12 mls/hr CONT PRN IV SEE I/O RECORD Last administered on 03/27/21at 07:25; Start 03/26/21 at 17:45 Sodium Bicarbonate 100 meq/Sodium Chloride 1,100 ml @ 100 mls/hr Q11H PRN IV SEE COMMENTS; Start 03/26/21 at 18:00 Midazolam HCl (Versed) 5 mg 1X ONCE IV Last administered on 03/26/21at 17:57; Start 03/26/21 at 18:00; Stop 03/26/21 at 18:01; Status DC Epinephrine HCl 10 mg/Sodium Chloride 250 ml @ 22.95 mls/ hr CONT PRN IV SEE I/O RECORD Last administered on 03/27/21at 07:23; Start 03/27/21 at 00:15 Furosemide (Lasix) 60 mg 1X ONCE IVP Last administered on 03/27/21at 02:11; Start 03/27/21 at 02:15; Stop 03/27/21 at 02:16; Status DC Sodium Bicarbonate (Sodium Bicarb Adult 8.4% Syr) 100 meq 1X ONCE IV Last administered on 03/27/21at 08:43; Start 03/27/21 at 08:45; Stop 03/27/21 at 08:46; Status DC Phenylephrine HCl 50 mg/Sodium Chloride 255 ml @ 24.052 mls/ hr CONT PRN IV PER PROTOCOL Last administered on 03/27/21at 08:47; Start 03/27/21 at 08:45 Sodium Bicarbonate (Sodium Bicarb Adult 8.4% Syr) 50 meq STK-MED ONCE .ROUTE ; Start 03/27/21 at 08:35; Stop 03/27/21 at 08:35; Status DC Allergies Allergies: Coded Allergies: Unable to Assess (Unverified , 03/26/21) ROS Review of System Unable to obtain 2/2 Unresponsive /Intubated Physical Exam Physical Exam General Intubated, Unresposnsive , Morbidly obese HEEN Intubated, Pupils fixed Neck supple Lungs Decreased at bases CV S1S2, rgular rate, distant HS Abd Obese , distended Srivastava + Extrem: LE edema +, Changes of CVI + Skin: No Rash Neuro: Unresponsive Vital Signs Vital Signs Date Time Temp Pulse Resp B/P (MAP) Pulse Ox O2 Delivery O2 Flow Rate FiO2 03/27/21 06:00 99.7 104 30 83/52 93 Ventilator 99.7 Assessment & Plan LISSETTE - ATN / Post CP arrest , Oligoanuric, Unresponsive ., .Hemodynamically unstable , multiple pressors , Awaiting neurology evaluation . Supportive care HyperKalemia Resolved Status post OOH cardiac arrest, at least 1 hour until ROSC/ Vfib/VT: Anoxic encephalopathy- Abonrmal CT , Neurology consulted Septic shock/ Multiorgan failure Acute respiratory failure requiring intubation Bilateral pneumonia right greater than left, gram-negative organisms, possible aspiration DKA- On protocol per primary Anion gap metabolic acidosis- Continue Bicarb Gtt Labs Labs Laboratory Tests Test 03/26/21 17:30 03/26/21 18:03 03/26/21 20:09 03/26/21 21:16 O2 Saturation 93 % (92-99) Arterial Blood pH 7.09 (7.35-7.45) Arterial Blood pH (Temp corrected) 7.12 Arterial Blood pCO2 at Patient Temp 42 mmHg (35-46) Arterial Blood pCO2 (Temp correct) 38 mmHg Arterial Blood pO2 at Patient Temp 79 mmHg (65-108) Arterial Blood pO2 (Temp corrected) 67 mmHg Arterial Blood HCO3 12 mmol/L (21-28) Arterial Blood Base Excess -17 mmol/L (-3-3) FiO2 85% White Blood Count 11.9 x10^3/uL (4.0-11.0) Red Blood Count 3.52 x10^6/uL (4.30-5.70) Hemoglobin 11.1 g/dL (13.0-17.5) Hematocrit 36.1 % (39.0-53.0) Mean Corpuscular Volume 102 fL (79-100) Mean Corpuscular Hemoglobin 32 pg (25-35) Mean Corpuscular Hemoglobin Concent 31 g/dL (31-37) Red Cell Distribution Width 15.5 % (11.5-14.5) Platelet Count 171 x10^3/uL (140-400) Neutrophils (%) (Auto) 91 % (31-73) Lymphocytes (%) (Auto) 8 % (24-48) Monocytes (%) (Auto) 1 % (0-9) Eosinophils (%) (Auto) 0 % (0-3) Basophils (%) (Auto) 0 % (0-3) Neutrophils # (Auto) 10.8 x10^3/uL (1.8-7.7) Lymphocytes # (Auto) 0.9 x10^3/uL (1.0-4.8) Monocytes # (Auto) 0.1 x10^3/uL (0.0-1.1) Eosinophils # (Auto) 0.0 x10^3/uL (0.0-0.7) Basophils # (Auto) 0.0 x10^3/uL (0.0-0.2) Segmented Neutrophils % 77 % (35-66) Band Neutrophils % 8 % (0-9) Lymphocytes % 13 % (24-48) Monocytes % 1 % (0-10) Metamyelocytes % 1 % (0-0) Toxic Granulation Slight Platelet Estimate Adequate (ADEQUATE) Sodium Level 133 mmol/L (136-145) Potassium Level 6.3 mmol/L (3.5-5.1) Chloride Level 93 mmol/L (98-107) Carbon Dioxide Level 15 mmol/L (21-32) Anion Gap 25 (6-14) Blood Urea Nitrogen 61 mg/dL (8-26) Creatinine 4.7 mg/dL (0.7-1.3) Estimated GFR (Cockcroft-Gault) 12.7 Glucose Level 695 mg/dL (70-99) Calcium Level 7.6 mg/dL (8.5-10.1) Phosphorus Level 12.1 mg/dL (2.6-4.7) Magnesium Level 3.0 mg/dL (1.8-2.4) Glucose (Fingerstick) 585 mg/dL (70-99) 503 mg/dL (70-99) Test 03/26/21 23:00 03/27/21 00:44 03/27/21 02:08 03/27/21 03:24 Sodium Level 134 mmol/L (136-145) Potassium Level 4.6 mmol/L (3.5-5.1) Chloride Level 96 mmol/L (98-107) Carbon Dioxide Level 16 mmol/L (21-32) Anion Gap 22 (6-14) Blood Urea Nitrogen 67 mg/dL (8-26) Creatinine 4.8 mg/dL (0.7-1.3) Estimated GFR (Cockcroft-Gault) 12.4 Glucose Level 610 mg/dL (70-99) Calcium Level 7.2 mg/dL (8.5-10.1) Phosphorus Level 5.2 mg/dL (2.6-4.7) Magnesium Level 2.7 mg/dL (1.8-2.4) Glucose (Fingerstick) 413 mg/dL (70-99) 446 mg/dL (70-99) 391 mg/dL (70-99) Test 03/27/21 04:20 03/27/21 04:31 03/27/21 06:41 03/27/21 07:45 White Blood Count 3.2 x10^3/uL (4.0-11.0) Red Blood Count 3.31 x10^6/uL (4.30-5.70) Hemoglobin 10.3 g/dL (13.0-17.5) Hematocrit 34.2 % (39.0-53.0) Mean Corpuscular Volume 103 fL (79-100) Mean Corpuscular Hemoglobin 31 pg (25-35) Mean Corpuscular Hemoglobin Concent 30 g/dL (31-37) Red Cell Distribution Width 14.6 % (11.5-14.5) Platelet Count 131 x10^3/uL (140-400) Neutrophils (%) (Auto) 81 % (31-73) Lymphocytes (%) (Auto) 14 % (24-48) Monocytes (%) (Auto) 4 % (0-9) Eosinophils (%) (Auto) 1 % (0-3) Basophils (%) (Auto) 0 % (0-3) Neutrophils # (Auto) 2.6 x10^3/uL (1.8-7.7) Lymphocytes # (Auto) 0.5 x10^3/uL (1.0-4.8) Monocytes # (Auto) 0.1 x10^3/uL (0.0-1.1) Eosinophils # (Auto) 0.0 x10^3/uL (0.0-0.7) Basophils # (Auto) 0.0 x10^3/uL (0.0-0.2) Sodium Level 136 mmol/L (136-145) Potassium Level 4.6 mmol/L (3.5-5.1) Chloride Level 101 mmol/L (98-107) Carbon Dioxide Level 12 mmol/L (21-32) Anion Gap 23 (6-14) Blood Urea Nitrogen 68 mg/dL (8-26) Creatinine 5.2 mg/dL (0.7-1.3) Estimated GFR (Cockcroft-Gault) 11.3 BUN/Creatinine Ratio 13 (6-20) Glucose Level 417 mg/dL (70-99) Lactic Acid Level 12.0 mmol/L (0.4-2.0) Calcium Level 6.8 mg/dL (8.5-10.1) Phosphorus Level 4.9 mg/dL (2.6-4.7) Magnesium Level 2.5 mg/dL (1.8-2.4) Total Bilirubin 2.6 mg/dL (0.2-1.0) Aspartate Amino Transf (AST/SGOT) 5590 U/L (15-37) Alanine Aminotransferase (ALT/SGPT) 1605 U/L (16-63) Alkaline Phosphatase 118 U/L (46-116) Total Protein 4.2 g/dL (6.4-8.2) Albumin 1.7 g/dL (3.4-5.0) Albumin/Globulin Ratio 0.7 (1.0-1.7) Glucose (Fingerstick) 437 mg/dL (70-99) 321 mg/dL (70-99) 271 mg/dL (70-99) Test 03/27/21 08:56 Glucose (Fingerstick) 234 mg/dL (70-99) Laboratory Tests Test 03/26/21 17:30 03/26/21 18:03 03/26/21 20:09 03/26/21 21:16 O2 Saturation 93 % (92-99) Arterial Blood pH 7.09 (7.35-7.45) Arterial Blood pH (Temp corrected) 7.12 Arterial Blood pCO2 at Patient Temp 42 mmHg (35-46) Arterial Blood pCO2 (Temp correct) 38 mmHg Arterial Blood pO2 at Patient Temp 79 mmHg (65-108) Arterial Blood pO2 (Temp corrected) 67 mmHg Arterial Blood HCO3 12 mmol/L (21-28) Arterial Blood Base Excess -17 mmol/L (-3-3) FiO2 85% White Blood Count 11.9 x10^3/uL (4.0-11.0) Red Blood Count 3.52 x10^6/uL (4.30-5.70) Hemoglobin 11.1 g/dL (13.0-17.5) Hematocrit 36.1 % (39.0-53.0) Mean Corpuscular Volume 102 fL (79-100) Mean Corpuscular Hemoglobin 32 pg (25-35) Mean Corpuscular Hemoglobin Concent 31 g/dL (31-37) Red Cell Distribution Width 15.5 % (11.5-14.5) Platelet Count 171 x10^3/uL (140-400) Neutrophils (%) (Auto) 91 % (31-73) Lymphocytes (%) (Auto) 8 % (24-48) Monocytes (%) (Auto) 1 % (0-9) Eosinophils (%) (Auto) 0 % (0-3) Basophils (%) (Auto) 0 % (0-3) Neutrophils # (Auto) 10.8 x10^3/uL (1.8-7.7) Lymphocytes # (Auto) 0.9 x10^3/uL (1.0-4.8) Monocytes # (Auto) 0.1 x10^3/uL (0.0-1.1) Eosinophils # (Auto) 0.0 x10^3/uL (0.0-0.7) Basophils # (Auto) 0.0 x10^3/uL (0.0-0.2) Segmented Neutrophils % 77 % (35-66) Band Neutrophils % 8 % (0-9) Lymphocytes % 13 % (24-48) Monocytes % 1 % (0-10) Metamyelocytes % 1 % (0-0) Toxic Granulation Slight Platelet Estimate Adequate (ADEQUATE) Sodium Level 133 mmol/L (136-145) Potassium Level 6.3 mmol/L (3.5-5.1) Chloride Level 93 mmol/L (98-107) Carbon Dioxide Level 15 mmol/L (21-32) Anion Gap 25 (6-14) Blood Urea Nitrogen 61 mg/dL (8-26) Creatinine 4.7 mg/dL (0.7-1.3) Estimated GFR (Cockcroft-Gault) 12.7 Glucose Level 695 mg/dL (70-99) Calcium Level 7.6 mg/dL (8.5-10.1) Phosphorus Level 12.1 mg/dL (2.6-4.7) Magnesium Level 3.0 mg/dL (1.8-2.4) Glucose (Fingerstick) 585 mg/dL (70-99) 503 mg/dL (70-99) Test 03/26/21 23:00 03/27/21 00:44 03/27/21 02:08 03/27/21 03:24 Sodium Level 134 mmol/L (136-145) Potassium Level 4.6 mmol/L (3.5-5.1) Chloride Level 96 mmol/L (98-107) Carbon Dioxide Level 16 mmol/L (21-32) Anion Gap 22 (6-14) Blood Urea Nitrogen 67 mg/dL (8-26) Creatinine 4.8 mg/dL (0.7-1.3) Estimated GFR (Cockcroft-Gault) 12.4 Glucose Level 610 mg/dL (70-99) Calcium Level 7.2 mg/dL (8.5-10.1) Phosphorus Level 5.2 mg/dL (2.6-4.7) Magnesium Level 2.7 mg/dL (1.8-2.4) Glucose (Fingerstick) 413 mg/dL (70-99) 446 mg/dL (70-99) 391 mg/dL (70-99) Test 03/27/21 04:20 03/27/21 04:31 03/27/21 06:41 03/27/21 07:45 White Blood Count 3.2 x10^3/uL (4.0-11.0) Red Blood Count 3.31 x10^6/uL (4.30-5.70) Hemoglobin 10.3 g/dL (13.0-17.5) Hematocrit 34.2 % (39.0-53.0) Mean Corpuscular Volume 103 fL (79-100) Mean Corpuscular Hemoglobin 31 pg (25-35) Mean Corpuscular Hemoglobin Concent 30 g/dL (31-37) Red Cell Distribution Width 14.6 % (11.5-14.5) Platelet Count 131 x10^3/uL (140-400) Neutrophils (%) (Auto) 81 % (31-73) Lymphocytes (%) (Auto) 14 % (24-48) Monocytes (%) (Auto) 4 % (0-9) Eosinophils (%) (Auto) 1 % (0-3) Basophils (%) (Auto) 0 % (0-3) Neutrophils # (Auto) 2.6 x10^3/uL (1.8-7.7) Lymphocytes # (Auto) 0.5 x10^3/uL (1.0-4.8) Monocytes # (Auto) 0.1 x10^3/uL (0.0-1.1) Eosinophils # (Auto) 0.0 x10^3/uL (0.0-0.7) Basophils # (Auto) 0.0 x10^3/uL (0.0-0.2) Sodium Level 136 mmol/L (136-145) Potassium Level 4.6 mmol/L (3.5-5.1) Chloride Level 101 mmol/L (98-107) Carbon Dioxide Level 12 mmol/L (21-32) Anion Gap 23 (6-14) Blood Urea Nitrogen 68 mg/dL (8-26) Creatinine 5.2 mg/dL (0.7-1.3) Estimated GFR (Cockcroft-Gault) 11.3 BUN/Creatinine Ratio 13 (6-20) Glucose Level 417 mg/dL (70-99) Lactic Acid Level 12.0 mmol/L (0.4-2.0) Calcium Level 6.8 mg/dL (8.5-10.1) Phosphorus Level 4.9 mg/dL (2.6-4.7) Magnesium Level 2.5 mg/dL (1.8-2.4) Total Bilirubin 2.6 mg/dL (0.2-1.0) Aspartate Amino Transf (AST/SGOT) 5590 U/L (15-37) Alanine Aminotransferase (ALT/SGPT) 1605 U/L (16-63) Alkaline Phosphatase 118 U/L (46-116) Total Protein 4.2 g/dL (6.4-8.2) Albumin 1.7 g/dL (3.4-5.0) Albumin/Globulin Ratio 0.7 (1.0-1.7) Glucose (Fingerstick) 437 mg/dL (70-99) 321 mg/dL (70-99) 271 mg/dL (70-99) Test 03/27/21 08:56 Glucose (Fingerstick) 234 mg/dL (70-99) Review All relevant outside records, renal labs, imaging studies, telemetry/EKG's were reviewed. Images Images EXAMINATION: XR CHEST 1V CLINICAL HISTORY: Low oxygen saturation, ET tube/OG tube placement EXAM DATE/TIME: 03/27/2021 12:42 AM COMPARISON: 03/26/2021 FINDINGS: Lines, Tubes, and Devices: Endotracheal and enteric tubes remain in similar satisfactory positions. Cardiomediastinal Silhouette: Cardiomegaly. Lungs and Pleura: Increased ill-defined centrilobular opacities, greater on the right. No evidence of pleural effusion or pneumothorax. Bones and Soft Tissues: Degenerative changes in the thoracic spine. IMPRESSION: Increased bilateral central airspace disease, greater on the right. MICHAEL SHAFFER MD Mar 27, 2021 09:31
--- NOTE | 2021-03-27 10:15 | PDOC2 ---
CARDIAC CONSULT DATE OF CONSULT Date of Consult DATE: 03/27/21 TIME: 10:01 REASON FOR CONSULT Reason for Consult: cardiac arrest, multiple VTs REFERRING PHYSICIAN Referring Physician: Tino SOURCE Source: Chart review HISTORY OF PRESENT ILLNESS HISTORY OF PRESENT ILLNESS This is a 60 yo male admitted for OOH cardiac arrest. Per staff he called the straightening machine operator due to water leak and he was found unresponsive. No t clear how long he was down but estimated about 30 min based from when the straightening machine operator was called. He had several VTs and coded multiple times between EMS and ER and last rhythm noted was PEA then ROSC. No known hx of CAD, arrhythmias but known for HTN, insulin dependent DM and HLP. Presently he is on multiple pressors, intubated with vent, multi organ failure. PAST MEDICAL HISTORY Cardiovascular: HTN, Hyperlipidemia Hepatobiliary: Cholelithiasis Endocrine: Diabetes PAST SURGICAL HISTORY Past Surgical History: Other (unknown) FAMILY HISTORY Family History: Family History Unknown SOCIAL HISTORY Social History unknown CURRENT MEDICATIONS CURRENT MEDICATIONS Current Medications Medications (Trade) Dose Ordered Sig/Jose Miguel Route PRN Reason Start Time Stop Time Status Last Admin Dose Admin Epinephrine HCl 5 mg/Sodium Chloride 255 ml @ 46.818 mls/ hr CONT PRN IV SEE I/O RECORD 03/26/21 17:30 03/27/21 00:09 DC 03/26/21 21:11 Norepinephrine Bitartrate 32 mg/ Dextrose 250 ml @ 4.688 mls/ hr CONT PRN IV SEE I/O RECORD 03/26/21 17:45 03/27/21 09:37 Sodium Bicarbonate (Sodium Bicarb Adult 8.4% Syr) 100 meq 1X ONCE IV 03/26/21 17:30 03/26/21 17:35 DC 03/26/21 17:30 Sodium Chloride 1,000 ml @ 1,000 mls/hr Q1H IV 03/26/21 17:30 03/26/21 18:29 DC 03/26/21 17:56 Sodium Chloride 1,000 ml @ 250 mls/hr Q4H IV 03/26/21 17:45 03/27/21 09:18 DC 03/27/21 09:05 Insulin Human Regular 100 unit/ Sodium Chloride 101 ml @ 0 mls/hr CONT PRN PRN IV PER PROTOCOL 03/26/21 17:30 03/27/21 09:43 Vasopressin 20 unit/Dextrose 101 ml @ 12 mls/hr CONT PRN IV SEE I/O RECORD 03/26/21 17:45 03/27/21 07:25 Midazolam HCl (Versed) 5 mg 1X ONCE IV 03/26/21 18:00 03/26/21 18:01 DC 03/26/21 17:57 Epinephrine HCl 10 mg/Sodium Chloride 250 ml @ 22.95 mls/ hr CONT PRN IV SEE I/O RECORD 03/27/21 00:15 03/27/21 09:34 Furosemide (Lasix) 60 mg 1X ONCE IVP 03/27/21 02:15 03/27/21 02:16 DC 03/27/21 02:11 Sodium Bicarbonate (Sodium Bicarb Adult 8.4% Syr) 100 meq 1X ONCE IV 03/27/21 08:45 03/27/21 08:46 DC 03/27/21 08:43 Phenylephrine HCl 50 mg/Sodium Chloride 255 ml @ 24.052 mls/ hr CONT PRN IV PER PROTOCOL 03/27/21 08:45 03/27/21 08:47 Dextrose/Sodium Chloride 1,000 ml @ 250 mls/hr Q4H IV 03/27/21 09:15 03/27/21 09:43 Sodium Bicarbonate (Sodium Bicarb Adult 8.4% Syr) 100 meq 1X ONCE IV 03/27/21 09:45 03/27/21 09:46 DC 03/27/21 09:44 ALLERGIES ALLERGIES: Coded Allergies: Unable to Assess (Unverified , 03/26/21) ROS Review of System unreliable PHYSICAL EXAM General: Other (intubated) Lungs: Other (intubated with vent) Heart: Regular rate (SR), Other (distant heart sounds) Abdomen: Other (obese) Extremities: Other (anasarca) Skin: Other (LE venous demratitis) Neuro: Other (unresponsive) VITALS/I&O VITALS/I&O: Vital Signs Date Time Temp Pulse Resp B/P (MAP) Pulse Ox O2 Delivery O2 Flow Rate FiO2 03/27/21 08:21 97 Ventilator 03/27/21 06:00 99.7 104 30 83/52 99.7 I & O 03/26/21 03/26/21 03/27/21 15:00 23:00 07:00 Intake Total 6590 ml Output Total 30 ml 210 ml Balance -30 ml 6380 ml LABS Lab: Laboratory Tests Test 03/26/21 17:30 03/26/21 18:03 03/26/21 20:09 03/26/21 21:16 O2 Saturation 93 % (92-99) Arterial Blood pH 7.09 (7.35-7.45) *L Arterial Blood pH (Temp corrected) 7.12 Arterial Blood pCO2 at Patient Temp 42 mmHg (35-46) Arterial Blood pCO2 (Temp correct) 38 mmHg Arterial Blood pO2 at Patient Temp 79 mmHg (65-108) Arterial Blood pO2 (Temp corrected) 67 mmHg Arterial Blood HCO3 12 mmol/L (21-28) L Arterial Blood Base Excess -17 mmol/L (-3-3) L FiO2 85% White Blood Count 11.9 x10^3/uL (4.0-11.0) H Red Blood Count 3.52 x10^6/uL (4.30-5.70) L Hemoglobin 11.1 g/dL (13.0-17.5) L Hematocrit 36.1 % (39.0-53.0) L Mean Corpuscular Volume 102 fL (79-100) H Mean Corpuscular Hemoglobin 32 pg (25-35) Mean Corpuscular Hemoglobin Concent 31 g/dL (31-37) Red Cell Distribution Width 15.5 % (11.5-14.5) H Platelet Count 171 x10^3/uL (140-400) Neutrophils (%) (Auto) 91 % (31-73) H Lymphocytes (%) (Auto) 8 % (24-48) L Monocytes (%) (Auto) 1 % (0-9) Eosinophils (%) (Auto) 0 % (0-3) Basophils (%) (Auto) 0 % (0-3) Neutrophils # (Auto) 10.8 x10^3/uL (1.8-7.7) H Lymphocytes # (Auto) 0.9 x10^3/uL (1.0-4.8) L Monocytes # (Auto) 0.1 x10^3/uL (0.0-1.1) Eosinophils # (Auto) 0.0 x10^3/uL (0.0-0.7) Basophils # (Auto) 0.0 x10^3/uL (0.0-0.2) Segmented Neutrophils % 77 % (35-66) H Band Neutrophils % 8 % (0-9) Lymphocytes % 13 % (24-48) L Monocytes % 1 % (0-10) Metamyelocytes % 1 % (0-0) H Toxic Granulation Slight Platelet Estimate Adequate (ADEQUATE) Sodium Level 133 mmol/L (136-145) L Potassium Level 6.3 mmol/L (3.5-5.1) *H Chloride Level 93 mmol/L (98-107) L Carbon Dioxide Level 15 mmol/L (21-32) L Anion Gap 25 (6-14) H Blood Urea Nitrogen 61 mg/dL (8-26) H Creatinine 4.7 mg/dL (0.7-1.3) H Estimated GFR (Cockcroft-Gault) 12.7 Glucose Level 695 mg/dL (70-99) *H Calcium Level 7.6 mg/dL (8.5-10.1) L Phosphorus Level 12.1 mg/dL (2.6-4.7) H Magnesium Level 3.0 mg/dL (1.8-2.4) H Glucose (Fingerstick) 585 mg/dL (70-99) *H 503 mg/dL (70-99) *H Test 03/26/21 23:00 03/27/21 00:44 03/27/21 02:08 03/27/21 03:24 Sodium Level 134 mmol/L (136-145) L Potassium Level 4.6 mmol/L (3.5-5.1) # Chloride Level 96 mmol/L (98-107) L Carbon Dioxide Level 16 mmol/L (21-32) L Anion Gap 22 (6-14) H Blood Urea Nitrogen 67 mg/dL (8-26) H Creatinine 4.8 mg/dL (0.7-1.3) H Estimated GFR (Cockcroft-Gault) 12.4 Glucose Level 610 mg/dL (70-99) *H Calcium Level 7.2 mg/dL (8.5-10.1) L Phosphorus Level 5.2 mg/dL (2.6-4.7) H Magnesium Level 2.7 mg/dL (1.8-2.4) H Glucose (Fingerstick) 413 mg/dL (70-99) H 446 mg/dL (70-99) H 391 mg/dL (70-99) H Test 03/27/21 04:20 03/27/21 04:31 03/27/21 06:41 03/27/21 07:45 White Blood Count 3.2 x10^3/uL (4.0-11.0) L Red Blood Count 3.31 x10^6/uL (4.30-5.70) L Hemoglobin 10.3 g/dL (13.0-17.5) L Hematocrit 34.2 % (39.0-53.0) L Mean Corpuscular Volume 103 fL (79-100) H Mean Corpuscular Hemoglobin 31 pg (25-35) Mean Corpuscular Hemoglobin Concent 30 g/dL (31-37) L Red Cell Distribution Width 14.6 % (11.5-14.5) H Platelet Count 131 x10^3/uL (140-400) L Neutrophils (%) (Auto) 81 % (31-73) H Lymphocytes (%) (Auto) 14 % (24-48) L Monocytes (%) (Auto) 4 % (0-9) Eosinophils (%) (Auto) 1 % (0-3) Basophils (%) (Auto) 0 % (0-3) Neutrophils # (Auto) 2.6 x10^3/uL (1.8-7.7) Lymphocytes # (Auto) 0.5 x10^3/uL (1.0-4.8) L Monocytes # (Auto) 0.1 x10^3/uL (0.0-1.1) Eosinophils # (Auto) 0.0 x10^3/uL (0.0-0.7) Basophils # (Auto) 0.0 x10^3/uL (0.0-0.2) Sodium Level 136 mmol/L (136-145) Potassium Level 4.6 mmol/L (3.5-5.1) Chloride Level 101 mmol/L (98-107) Carbon Dioxide Level 12 mmol/L (21-32) L Anion Gap 23 (6-14) H Blood Urea Nitrogen 68 mg/dL (8-26) H Creatinine 5.2 mg/dL (0.7-1.3) H Estimated GFR (Cockcroft-Gault) 11.3 BUN/Creatinine Ratio 13 (6-20) Glucose Level 417 mg/dL (70-99) H Lactic Acid Level 12.0 mmol/L (0.4-2.0) *H Calcium Level 6.8 mg/dL (8.5-10.1) L Phosphorus Level 4.9 mg/dL (2.6-4.7) H Magnesium Level 2.5 mg/dL (1.8-2.4) H Total Bilirubin 2.6 mg/dL (0.2-1.0) H Aspartate Amino Transferase (AST) 5590 U/L (15-37) H Alanine Aminotransferase (ALT) 1605 U/L (16-63) H Alkaline Phosphatase 118 U/L (46-116) H Total Protein 4.2 g/dL (6.4-8.2) L Albumin 1.7 g/dL (3.4-5.0) L Albumin/Globulin Ratio 0.7 (1.0-1.7) L Glucose (Fingerstick) 437 mg/dL (70-99) H 321 mg/dL (70-99) H 271 mg/dL (70-99) H Test 03/27/21 08:00 03/27/21 08:56 O2 Saturation 90 % (92-99) L Arterial Blood pH 6.99 (7.35-7.45) *L Arterial Blood pCO2 at Patient Temp 43 mmHg (35-46) Arterial Blood pO2 at Patient Temp 73 mmHg (65-108) Arterial Blood HCO3 10 mmol/L (21-28) L Arterial Blood Base Excess -20 mmol/L (-3-3) L FiO2 100/vent Glucose (Fingerstick) 234 mg/dL (70-99) H Laboratory Tests 03/26/21 18:03 03/27/21 04:20 Laboratory Tests 03/26/21 18:03 03/26/21 23:00 03/27/21 04:20 ASSESSMENT/PLAN ASSESSMENT/PLAN 1. OOH cardiac arrest: likely from metabolic issue 2. Vfib/VT: multiple codes with prolonged downtime 3. Anoxic encephalopathy 4. Multiorgan failure Recommendations 1. Unable to contact any family member. Very poor prognosis 2. Presently on multiple pressors x4. Limited TTE 3. Awaiting neurology and family contact PRIMO TEAGUE APRN Mar 27, 2021 10:15
[2021-03-27 11:21] LABS: CALCIUM 6.8 mg/dL (8.5-10.1); CREATININE 5.2 mg/dL (0.7-1.3); GFR 11.3; MAGNESIUM 2.8 mg/dL (1.8-2.4)
[2021-03-27 11:23] LABS: PHOSPHORUS 11.3 mg/dL (2.6-4.7)
[2021-03-27 11:26] LABS: POTASSIUM 6.8 mmol/L (3.5-5.1)
--- NOTE | 2021-03-27 12:29 | PDOC ---
Provider Note Date of Service: DATE: 03/27/21 TIME: 12:26 Provider Note Time of 12:21 PM, 03/27/2021 Cause of , multiorgan failure, out of hospital cardiopulmonary arrest, ventricular tachycardia, cardiogenic shock, Approximately 2 minutes prior to patient losing pulse, Dr. Weathers, and this qa lead discussed the fact that the patient clinically met criteria for brain . Since he had no family to make any further decisions, both he and I decided the patient should be a DO NOT RESUSCITATE. Within a minute of making patient a DO NOT RESUSCITATE candidate, he lost his pulse. I examined the patient after losing his pulse. He was not assisting the ventilator, he was taken off mechanical ventilation, no spontaneous breathing pattern, no pulse, no heart tones, Patient pronounced at 12:21 PM on 03/27/2021 Justifications for Admission Other Justification DORIS JUDGE MD Mar 27, 2021 12:29
--- NOTE | 2021-03-27 13:13 | CARD ---
MR#: [id number] Date of Study: 03/27/2021 Ordering Physician: PRIMO TEAGUE, Referring Physician: PRIMO TEAGUE, Tech: Dalila Crocker [place], [facility] APPROVED REPORT EXAM: Two-dimensional and M-mode echocardiogram with Doppler and color Doppler. Other Information Quality : FairHR: 88bpm INDICATION LV Function:SystolicDiastolic Cardiac Arrest RISK FACTORS Hypertension 2D DIMENSIONS Left Atrium(2D)3.9 (1.6-4.0cm)IVSd1.3 (0.7-1.1cm) Aortic Root(2D)3.2 (2.0-3.7cm)LVDd5.8 (3.9-5.9cm) LVOT Diameter2.0 (1.8-2.4cm)PWd1.2 (0.7-1.1cm) LVDs3.5 (2.5-4.0cm)FS (%) 39.3 % SV113.3 ml Tricuspid Valve TR P. [id number] TR Peak [id number] LEFT VENTRICLE Limited echocardiogram. The left ventricle is normal size. There is mild concentric left ventricular hypertrophy. The systolic function is within normal limits. LV ejection fraction of 50 to 55%. The re is normal LV segmental wall motion. RIGHT VENTRICLE The right ventricle is borderline dilated. ATRIA The left atrium is borderline dilated. The right atrium is mildly dilated. The interatrial septum is intact with no evidence for an atrial septal defect or patent foramen ovale as noted on 2-D or Dopple r imaging. AORTIC VALVE The aortic valve is normal in structure and function. There is no significant aortic valvular stenosi s. MITRAL VALVE The mitral valve is normal in structure and function. There is no evidence of mitral valve prolapse. There is no mitral valve stenosis. TRICUSPID VALVE The tricuspid valve is normal in structure and function. Doppler and Color Flow revealed trace tricus pid regurgitation with an estimated PAP of 36 mmHg. There is no tricuspid valve stenosis. PULMONIC VALVE The pulmonic valve is not well visualized. Doppler and color-flow analysis was not performed. GREAT VESSELS The aortic root is normal in size. The IVC was not visualized. Critical Notification Critical Value: No <Conclusion> Limited echocardiogram. The left ventricle is normal size. The systolic function is within normal limits. LV ejection fraction of 50 to 55%. There is mild concentric left ventricular hypertrophy. There is no significant aortic valvular stenosis. Doppler and Color Flow revealed trace tricuspid regurgitation with an estimated PAP of 36 mmHg. Signed by : Korey Harris MD Electronically Approved : 03/27/2021 13:12:44
--- NOTE | 2021-03-27 13:54 | PDOC2 ---
NEUROLOGY CONSULT Date of Service DOS: DATE: 03/27/21 TIME: 13:49 Reason for Consult Reason for Consult: Postcode Referring Physician Referring Physician: Dr. Jiménez Source Source: Chart review History of Present Illness History of Present Illness The patient is a 60-year-old male who called maintenance in his building because of a water leak. They came about 1/2-hour later and do not respond to the door. They got the door open and found patient on the floor. Emergency medical services found him in pulseless electrical activity. Spontaneous cardiac rhythm was restored temporarily, he had at least 3 code blues in the emergency department with ventricular fibrillation. Patient has remained unresponsive since. There has been no seizure activity. There has been no sedation given. He had an insulin pump on his body that was removed by emergency medical services. There is no family to give any history. Past Medical History Endocrine: Diabetes Past Surgical History Past Surgical History: No pertinent history (Unknown) Social History Social History Unknown Current Medications Current Medications Current Medications Norepinephrine Bitartrate 8 mg/ Dextrose 258 ml @ 29.606 mls/ hr CONT PRN IV PER PROTOCOL; Start 03/26/21 at 17:30; Status UNV Epinephrine HCl 5 mg/Sodium Chloride 255 ml @ 46.818 mls/ hr CONT PRN IV SEE I/O RECORD Last administered on 03/26/21at 21:11; Start 03/26/21 at 17:30; Stop 03/27/21 at 00:09; Status DC Norepinephrine Bitartrate 32 mg/ Dextrose 250 ml @ 4.688 mls/ hr CONT PRN IV SEE I/O RECORD Last administered on 03/27/21at 09:37; Start 03/26/21 at 17:45 Sodium Bicarbonate (Sodium Bicarb Adult 8.4% Syr) 100 meq 1X ONCE IV Last administered on 03/26/21at 17:30; Start 03/26/21 at 17:30; Stop 03/26/21 at 17:35; Status DC Sodium Chloride 1,000 ml @ 1,000 mls/hr Q1H IV Last administered on 03/26/21at 17:56; Start 03/26/21 at 17:30; Stop 03/26/21 at 18:29; Status DC Sodium Chloride 1,000 ml @ 250 mls/hr Q4H IV Last administered on 03/27/21at 09:05; Start 03/26/21 at 17:45; Stop 03/27/21 at 09:18; Status DC Insulin Human Regular 100 unit/ Sodium Chloride 101 ml @ 0 mls/hr CONT PRN PRN IV PER PROTOCOL Last administered on 03/27/21at 09:43; Start 03/26/21 at 17:30 Sodium Bicarbonate 50 meq/Sodium Chloride 1,050 ml @ 500 mls/hr Q2H6M PRN IV SEE COMMENTS; Start 03/26/21 at 17:30; Stop 03/26/21 at 17:46; Status DC Vasopressin 20 unit/Dextrose 101 ml @ 12 mls/hr CONT PRN IV SEE I/O RECORD Last administered on 03/27/21at 07:25; Start 03/26/21 at 17:45 Sodium Bicarbonate 100 meq/Sodium Chloride 1,100 ml @ 100 mls/hr Q11H PRN IV SEE COMMENTS; Start 03/26/21 at 18:00 Midazolam HCl (Versed) 5 mg 1X ONCE IV Last administered on 03/26/21at 17:57; Start 03/26/21 at 18:00; Stop 03/26/21 at 18:01; Status DC Epinephrine HCl 10 mg/Sodium Chloride 250 ml @ 22.95 mls/ hr CONT PRN IV SEE I/O RECORD Last administered on 03/27/21at 10:56; Start 03/27/21 at 00:15 Furosemide (Lasix) 60 mg 1X ONCE IVP Last administered on 03/27/21at 02:11; Start 03/27/21 at 02:15; Stop 03/27/21 at 02:16; Status DC Sodium Bicarbonate (Sodium Bicarb Adult 8.4% Syr) 100 meq 1X ONCE IV Last administered on 03/27/21at 08:43; Start 03/27/21 at 08:45; Stop 03/27/21 at 08:46; Status DC Phenylephrine HCl 50 mg/Sodium Chloride 255 ml @ 24.052 mls/ hr CONT PRN IV PER PROTOCOL Last administered on 03/27/21at 11:43; Start 03/27/21 at 08:45 Sodium Bicarbonate (Sodium Bicarb Adult 8.4% Syr) 50 meq STK-MED ONCE .ROUTE ; Start 03/27/21 at 08:35; Stop 03/27/21 at 08:35; Status DC Dextrose/Sodium Chloride 1,000 ml @ 250 mls/hr Q4H IV Last administered on 03/27/21at 09:43; Start 03/27/21 at 09:15 Sodium Bicarbonate (Sodium Bicarb Adult 8.4% Syr) 100 meq 1X ONCE IV Last administered on 03/27/21at 09:44; Start 03/27/21 at 09:45; Stop 03/27/21 at 09:46; Status DC Sodium Bicarbonate (Sodium Bicarb Adult 8.4% Syr) 50 meq 1X ONCE IV Last administered on 03/27/21at 10:44; Start 03/27/21 at 10:45; Stop 03/27/21 at 10:46; Status DC Allergies Allergies: Coded Allergies: Unable to Assess (Unverified , 03/26/21) ROS Review of System Unobtainable Physical Exam Physical Examination Neurology Brain note Prerequisites (all must be checked) Coma, irreversible and cause known. Neuroimaging explains coma. HANDS HANGER depressant drug effect absent (if indicated toxicology screen; if barbiturates given, serum level <10 g/mL). No evidence of residual paralytics (electrical stimulation if paralytics used). Absence of severe acid-base, electrolyte, endocrine abnormality. Normothermia or mild hypothermia (core temperature >36C). Systolic blood pressure =100 mm Hg. No spontaneous respirations. Examination (all must be checked) Pupils nonreactive to bright light. Corneal reflex absent. Oculocephalic reflex absent (tested only if C-spineintegrity ensured). Oculovestibular reflex absent. No facial movement to noxious stimuli at supraorbital nerve, temporomandibular joint. Gag reflex absent. Cough reflex absent to tracheal suctioning. Absence of motor response to noxious stimuli in all four limbs (spinally mediated reflexes are permissible). Apnea testing (all must be checked) Patient before the apnea testing could be done, he had no spontaneous respiration on informal apnea testing for 30 seconds Vitals VITALS Vital Signs Date Time Temp Pulse Resp B/P (MAP) Pulse Ox O2 Delivery O2 Flow Rate FiO2 03/27/21 12:00 Mechanical Ventilator 03/27/21 11:03 95 03/27/21 06:00 99.7 104 30 83/52 99.7 Labs Labs Laboratory Tests Test 03/26/21 17:30 03/26/21 18:03 03/26/21 20:09 03/26/21 21:16 O2 Saturation 93 % (92-99) Arterial Blood pH 7.09 (7.35-7.45) Arterial Blood pH (Temp corrected) 7.12 Arterial Blood pCO2 at Patient Temp 42 mmHg (35-46) Arterial Blood pCO2 (Temp correct) 38 mmHg Arterial Blood pO2 at Patient Temp 79 mmHg (65-108) Arterial Blood pO2 (Temp corrected) 67 mmHg Arterial Blood HCO3 12 mmol/L (21-28) Arterial Blood Base Excess -17 mmol/L (-3-3) FiO2 85% White Blood Count 11.9 x10^3/uL (4.0-11.0) Red Blood Count 3.52 x10^6/uL (4.30-5.70) Hemoglobin 11.1 g/dL (13.0-17.5) Hematocrit 36.1 % (39.0-53.0) Mean Corpuscular Volume 102 fL (79-100) Mean Corpuscular Hemoglobin 32 pg (25-35) Mean Corpuscular Hemoglobin Concent 31 g/dL (31-37) Red Cell Distribution Width 15.5 % (11.5-14.5) Platelet Count 171 x10^3/uL (140-400) Neutrophils (%) (Auto) 91 % (31-73) Lymphocytes (%) (Auto) 8 % (24-48) Monocytes (%) (Auto) 1 % (0-9) Eosinophils (%) (Auto) 0 % (0-3) Basophils (%) (Auto) 0 % (0-3) Neutrophils # (Auto) 10.8 x10^3/uL (1.8-7.7) Lymphocytes # (Auto) 0.9 x10^3/uL (1.0-4.8) Monocytes # (Auto) 0.1 x10^3/uL (0.0-1.1) Eosinophils # (Auto) 0.0 x10^3/uL (0.0-0.7) Basophils # (Auto) 0.0 x10^3/uL (0.0-0.2) Segmented Neutrophils % 77 % (35-66) Band Neutrophils % 8 % (0-9) Lymphocytes % 13 % (24-48) Monocytes % 1 % (0-10) Metamyelocytes % 1 % (0-0) Toxic Granulation Slight Platelet Estimate Adequate (ADEQUATE) Sodium Level 133 mmol/L (136-145) Potassium Level 6.3 mmol/L (3.5-5.1) Chloride Level 93 mmol/L (98-107) Carbon Dioxide Level 15 mmol/L (21-32) Anion Gap 25 (6-14) Blood Urea Nitrogen 61 mg/dL (8-26) Creatinine 4.7 mg/dL (0.7-1.3) Estimated GFR (Cockcroft-Gault) 12.7 Glucose Level 695 mg/dL (70-99) Calcium Level 7.6 mg/dL (8.5-10.1) Phosphorus Level 12.1 mg/dL (2.6-4.7) Magnesium Level 3.0 mg/dL (1.8-2.4) Glucose (Fingerstick) 585 mg/dL (70-99) 503 mg/dL (70-99) Test 03/26/21 23:00 03/27/21 00:44 03/27/21 02:08 03/27/21 03:24 Sodium Level 134 mmol/L (136-145) Potassium Level 4.6 mmol/L (3.5-5.1) Chloride Level 96 mmol/L (98-107) Carbon Dioxide Level 16 mmol/L (21-32) Anion Gap 22 (6-14) Blood Urea Nitrogen 67 mg/dL (8-26) Creatinine 4.8 mg/dL (0.7-1.3) Estimated GFR (Cockcroft-Gault) 12.4 Glucose Level 610 mg/dL (70-99) Calcium Level 7.2 mg/dL (8.5-10.1) Phosphorus Level 5.2 mg/dL (2.6-4.7) Magnesium Level 2.7 mg/dL (1.8-2.4) Glucose (Fingerstick) 413 mg/dL (70-99) 446 mg/dL (70-99) 391 mg/dL (70-99) Test 03/27/21 04:20 03/27/21 04:31 03/27/21 06:41 03/27/21 07:45 White Blood Count 3.2 x10^3/uL (4.0-11.0) Red Blood Count 3.31 x10^6/uL (4.30-5.70) Hemoglobin 10.3 g/dL (13.0-17.5) Hematocrit 34.2 % (39.0-53.0) Mean Corpuscular Volume 103 fL (79-100) Mean Corpuscular Hemoglobin 31 pg (25-35) Mean Corpuscular Hemoglobin Concent 30 g/dL (31-37) Red Cell Distribution Width 14.6 % (11.5-14.5) Platelet Count 131 x10^3/uL (140-400) Neutrophils (%) (Auto) 81 % (31-73) Lymphocytes (%) (Auto) 14 % (24-48) Monocytes (%) (Auto) 4 % (0-9) Eosinophils (%) (Auto) 1 % (0-3) Basophils (%) (Auto) 0 % (0-3) Neutrophils # (Auto) 2.6 x10^3/uL (1.8-7.7) Lymphocytes # (Auto) 0.5 x10^3/uL (1.0-4.8) Monocytes # (Auto) 0.1 x10^3/uL (0.0-1.1) Eosinophils # (Auto) 0.0 x10^3/uL (0.0-0.7) Basophils # (Auto) 0.0 x10^3/uL (0.0-0.2) Sodium Level 136 mmol/L (136-145) Potassium Level 4.6 mmol/L (3.5-5.1) Chloride Level 101 mmol/L (98-107) Carbon Dioxide Level 12 mmol/L (21-32) Anion Gap 23 (6-14) Blood Urea Nitrogen 68 mg/dL (8-26) Creatinine 5.2 mg/dL (0.7-1.3) Estimated GFR (Cockcroft-Gault) 11.3 BUN/Creatinine Ratio 13 (6-20) Glucose Level 417 mg/dL (70-99) Lactic Acid Level 12.0 mmol/L (0.4-2.0) Calcium Level 6.8 mg/dL (8.5-10.1) Phosphorus Level 4.9 mg/dL (2.6-4.7) Magnesium Level 2.5 mg/dL (1.8-2.4) Total Bilirubin 2.6 mg/dL (0.2-1.0) Aspartate Amino Transf (AST/SGOT) 5590 U/L (15-37) Alanine Aminotransferase (ALT/SGPT) 1605 U/L (16-63) Alkaline Phosphatase 118 U/L (46-116) Total Protein 4.2 g/dL (6.4-8.2) Albumin 1.7 g/dL (3.4-5.0) Albumin/Globulin Ratio 0.7 (1.0-1.7) Glucose (Fingerstick) 437 mg/dL (70-99) 321 mg/dL (70-99) 271 mg/dL (70-99) Test 03/27/21 08:00 03/27/21 08:56 03/27/21 10:00 03/27/21 10:12 O2 Saturation 90 % (92-99) Arterial Blood pH 6.99 (7.35-7.45) Arterial Blood pCO2 at Patient Temp 43 mmHg (35-46) Arterial Blood pO2 at Patient Temp 73 mmHg (65-108) Arterial Blood HCO3 10 mmol/L (21-28) Arterial Blood Base Excess -20 mmol/L (-3-3) FiO2 100/vent Glucose (Fingerstick) 234 mg/dL (70-99) 195 mg/dL (70-99) Sodium Level 142 mmol/L (136-145) Potassium Level 6.8 mmol/L (3.5-5.1) Chloride Level 104 mmol/L (98-107) Carbon Dioxide Level 12 mmol/L (21-32) Anion Gap 26 (6-14) Blood Urea Nitrogen 62 mg/dL (8-26) Creatinine 5.2 mg/dL (0.7-1.3) Estimated GFR (Cockcroft-Gault) 11.3 Glucose Level 212 mg/dL (70-99) Lactic Acid Level 17.2 mmol/L (0.4-2.0) Calcium Level 6.8 mg/dL (8.5-10.1) Phosphorus Level 11.3 mg/dL (2.6-4.7) Magnesium Level 2.8 mg/dL (1.8-2.4) Test 03/27/21 11:17 Glucose (Fingerstick) 191 mg/dL (70-99) Laboratory Tests Test 03/26/21 17:30 03/26/21 18:03 03/26/21 20:09 03/26/21 21:16 O2 Saturation 93 % (92-99) Arterial Blood pH 7.09 (7.35-7.45) Arterial Blood pH (Temp corrected) 7.12 Arterial Blood pCO2 at Patient Temp 42 mmHg (35-46) Arterial Blood pCO2 (Temp correct) 38 mmHg Arterial Blood pO2 at Patient Temp 79 mmHg (65-108) Arterial Blood pO2 (Temp corrected) 67 mmHg Arterial Blood HCO3 12 mmol/L (21-28) Arterial Blood Base Excess -17 mmol/L (-3-3) FiO2 85% White Blood Count 11.9 x10^3/uL (4.0-11.0) Red Blood Count 3.52 x10^6/uL (4.30-5.70) Hemoglobin 11.1 g/dL (13.0-17.5) Hematocrit 36.1 % (39.0-53.0) Mean Corpuscular Volume 102 fL (79-100) Mean Corpuscular Hemoglobin 32 pg (25-35) Mean Corpuscular Hemoglobin Concent 31 g/dL (31-37) Red Cell Distribution Width 15.5 % (11.5-14.5) Platelet Count 171 x10^3/uL (140-400) Neutrophils (%) (Auto) 91 % (31-73) Lymphocytes (%) (Auto) 8 % (24-48) Monocytes (%) (Auto) 1 % (0-9) Eosinophils (%) (Auto) 0 % (0-3) Basophils (%) (Auto) 0 % (0-3) Neutrophils # (Auto) 10.8 x10^3/uL (1.8-7.7) Lymphocytes # (Auto) 0.9 x10^3/uL (1.0-4.8) Monocytes # (Auto) 0.1 x10^3/uL (0.0-1.1) Eosinophils # (Auto) 0.0 x10^3/uL (0.0-0.7) Basophils # (Auto) 0.0 x10^3/uL (0.0-0.2) Segmented Neutrophils % 77 % (35-66) Band Neutrophils % 8 % (0-9) Lymphocytes % 13 % (24-48) Monocytes % 1 % (0-10) Metamyelocytes % 1 % (0-0) Toxic Granulation Slight Platelet Estimate Adequate (ADEQUATE) Sodium Level 133 mmol/L (136-145) Potassium Level 6.3 mmol/L (3.5-5.1) Chloride Level 93 mmol/L (98-107) Carbon Dioxide Level 15 mmol/L (21-32) Anion Gap 25 (6-14) Blood Urea Nitrogen 61 mg/dL (8-26) Creatinine 4.7 mg/dL (0.7-1.3) Estimated GFR (Cockcroft-Gault) 12.7 Glucose Level 695 mg/dL (70-99) Calcium Level 7.6 mg/dL (8.5-10.1) Phosphorus Level 12.1 mg/dL (2.6-4.7) Magnesium Level 3.0 mg/dL (1.8-2.4) Glucose (Fingerstick) 585 mg/dL (70-99) 503 mg/dL (70-99) Test 03/26/21 23:00 03/27/21 00:44 03/27/21 02:08 03/27/21 03:24 Sodium Level 134 mmol/L (136-145) Potassium Level 4.6 mmol/L (3.5-5.1) Chloride Level 96 mmol/L (98-107) Carbon Dioxide Level 16 mmol/L (21-32) Anion Gap 22 (6-14) Blood Urea Nitrogen 67 mg/dL (8-26) Creatinine 4.8 mg/dL (0.7-1.3) Estimated GFR (Cockcroft-Gault) 12.4 Glucose Level 610 mg/dL (70-99) Calcium Level 7.2 mg/dL (8.5-10.1) Phosphorus Level 5.2 mg/dL (2.6-4.7) Magnesium Level 2.7 mg/dL (1.8-2.4) Glucose (Fingerstick) 413 mg/dL (70-99) 446 mg/dL (70-99) 391 mg/dL (70-99) Test 03/27/21 04:20 03/27/21 04:31 03/27/21 06:41 03/27/21 07:45 White Blood Count 3.2 x10^3/uL (4.0-11.0) Red Blood Count 3.31 x10^6/uL (4.30-5.70) Hemoglobin 10.3 g/dL (13.0-17.5) Hematocrit 34.2 % (39.0-53.0) Mean Corpuscular Volume 103 fL (79-100) Mean Corpuscular Hemoglobin 31 pg (25-35) Mean Corpuscular Hemoglobin Concent 30 g/dL (31-37) Red Cell Distribution Width 14.6 % (11.5-14.5) Platelet Count 131 x10^3/uL (140-400) Neutrophils (%) (Auto) 81 % (31-73) Lymphocytes (%) (Auto) 14 % (24-48) Monocytes (%) (Auto) 4 % (0-9) Eosinophils (%) (Auto) 1 % (0-3) Basophils (%) (Auto) 0 % (0-3) Neutrophils # (Auto) 2.6 x10^3/uL (1.8-7.7) Lymphocytes # (Auto) 0.5 x10^3/uL (1.0-4.8) Monocytes # (Auto) 0.1 x10^3/uL (0.0-1.1) Eosinophils # (Auto) 0.0 x10^3/uL (0.0-0.7) Basophils # (Auto) 0.0 x10^3/uL (0.0-0.2) Sodium Level 136 mmol/L (136-145) Potassium Level 4.6 mmol/L (3.5-5.1) Chloride Level 101 mmol/L (98-107) Carbon Dioxide Level 12 mmol/L (21-32) Anion Gap 23 (6-14) Blood Urea Nitrogen 68 mg/dL (8-26) Creatinine 5.2 mg/dL (0.7-1.3) Estimated GFR (Cockcroft-Gault) 11.3 BUN/Creatinine Ratio 13 (6-20) Glucose Level 417 mg/dL (70-99) Lactic Acid Level 12.0 mmol/L (0.4-2.0) Calcium Level 6.8 mg/dL (8.5-10.1) Phosphorus Level 4.9 mg/dL (2.6-4.7) Magnesium Level 2.5 mg/dL (1.8-2.4) Total Bilirubin 2.6 mg/dL (0.2-1.0) Aspartate Amino Transf (AST/SGOT) 5590 U/L (15-37) Alanine Aminotransferase (ALT/SGPT) 1605 U/L (16-63) Alkaline Phosphatase 118 U/L (46-116) Total Protein 4.2 g/dL (6.4-8.2) Albumin 1.7 g/dL (3.4-5.0) Albumin/Globulin Ratio 0.7 (1.0-1.7) Glucose (Fingerstick) 437 mg/dL (70-99) 321 mg/dL (70-99) 271 mg/dL (70-99) Test 03/27/21 08:00 03/27/21 08:56 03/27/21 10:00 03/27/21 10:12 O2 Saturation 90 % (92-99) Arterial Blood pH 6.99 (7.35-7.45) Arterial Blood pCO2 at Patient Temp 43 mmHg (35-46) Arterial Blood pO2 at Patient Temp 73 mmHg (65-108) Arterial Blood HCO3 10 mmol/L (21-28) Arterial Blood Base Excess -20 mmol/L (-3-3) FiO2 100/vent Glucose (Fingerstick) 234 mg/dL (70-99) 195 mg/dL (70-99) Sodium Level 142 mmol/L (136-145) Potassium Level 6.8 mmol/L (3.5-5.1) Chloride Level 104 mmol/L (98-107) Carbon Dioxide Level 12 mmol/L (21-32) Anion Gap 26 (6-14) Blood Urea Nitrogen 62 mg/dL (8-26) Creatinine 5.2 mg/dL (0.7-1.3) Estimated GFR (Cockcroft-Gault) 11.3 Glucose Level 212 mg/dL (70-99) Lactic Acid Level 17.2 mmol/L (0.4-2.0) Calcium Level 6.8 mg/dL (8.5-10.1) Phosphorus Level 11.3 mg/dL (2.6-4.7) Magnesium Level 2.8 mg/dL (1.8-2.4) Test 03/27/21 11:17 Glucose (Fingerstick) 191 mg/dL (70-99) Images Images Imaging from [facility] from 03/26: CT Head W/O Contrast: History: Reason: unwitnessed cardiac arrest / Spl. Instructions: / History: Comparison: none Axial images were obtained without contrast. There is poor differentiation between the white and contreras matter. There is no mass effect, extraaxial fluid collections or hydrocephalus. There is no gross bleed. There is no hypoattenuation to suggest acute ischemia, i.e. stroke. Impression: Decreased distinction between white and contreras matter is consistent with diffuse cerebral edema and suggests either an episode of hypoxia or hypotension. This has a poor prognosis. End impression CT C-Spine without contrast: Clinical History: Reason: unwitnessed cardiac arrest / Spl. Instructions: / History: Technique: Axial helical images of the cervical spine were obtained without contrast, axial coronal and sagittal reconstruction was performed. Findings: There is no loss of vertebral body stature. There is no prevertebral soft tissue swelling. The vertebral bodies are well aligned. The C1-C2 relationship is normal. The visualized osseous structures appear normal. Impression: No acute findings. Clinical correlation suggested. End impression See CT head without contrast. These results were called to the Emergency Department and verified by read back at the time of dictation. Assessment/Plan Assessment/Plan Impression: Anoxic encephalopathy with brain , apnea testing was requested but the patient had bradycardia and then asystole before this could be done. I discussed the case with Dr. Cates and we agreed that resuscitation would be futile and declared the patient DO NOT RESUSCITATE. Recommendations: None Thank you for letting me help with the patient's care. HOLLEY OSBORNE MD Mar 27, 2021 13:54
--- NOTE | 2021-03-27 13:59 | NUR ---
Patient time of is 1221 on 03/27/21. Around 1200, pt became bradycardic, Dr. Menon and Dr. Pickering at bedside and they decided to make pt a DNR. No known family to contact, only pt belonging is an insulin pump, will be placed in body bag. MTN notified of cardiac time of , pt deemed to be a tissue and eye candidate. Referral number [id number]. Nursing casino operations supervisor notified.
--- NOTE | 2021-03-27 16:47 | CONS ---
DATE OF CONSULTATION: 03/27/2021 ATTENDING PHYSICIAN: Jayy Jiménez MD DICTATING PHYSICIAN: Aster Menon MD REASON FOR CONSULTATION: The patient is seen in pulmonary consultation at the request of Dr. Jiménez for [id number] cardiopulmonary arrest. HISTORY OF PRESENT ILLNESS: The patient is a 60-year-old admitted from [facility] in [place]. He had [id number] cardiac arrest. The patient was found unresponsive in his apartment. It is not clear how long he was down, but he was estimated approximately 30 minutes. He had several rounds of V-tach, coded multiple times between picked up by EMS and the Emergency Room. Upon arrival, the patient had a PEA, eventually had return of spontaneous circulation. No history of coronary artery disease or arrhythmia. He does have a history of insulin-dependent diabetes, hyperlipidemia and hypertension. Overnight, I received several phone calls, he has been on assist control ventilation. He has had severe metabolic acidosis. We made adjustments on his minute ventilation. I gave him some IV sodium bicarbonate. He was also started on a bicarbonate drip. He is on multiple pressors. He is currently being evaluated by Neurology. During my evaluation, we took him off mechanical ventilation. The patient did not initiate any breaths after 40 seconds. He has no oculocephalic reflex. No cough or gag reflex. PAST MEDICAL HISTORY: Hypertension, hyperlipidemia, cholelithiasis, diabetes. PAST SURGICAL HISTORY: Unknown. ALLERGIES: Unknown. SOCIAL HISTORY: Unknown if he smokes. REVIEW OF SYSTEMS: Unobtainable secondary to patient's condition. PHYSICAL EXAMINATION: VITAL SIGNS: Of note, he continues to be hypotensive despite pressors. Yesterday, he had a T-max of 100.4. HEENT: Eyes, no oculocephalic reflex. No gag or cough. CHEST: Full expansion. LUNGS: Adequate flow. CARDIOVASCULAR: Distant heart sounds. ABDOMEN: Obese. EXTREMITIES: Marked obesity and edema. LABORATORY DATA: White count was noted initially 11.9, this morning 3.2. Arterial blood gas, pH of 6.99. Arterial blood gas initially pH of 7.09, PaCO2 of 42, pO2 of 79. This morning despite IV sodium bicarbonate and increase minute ventilation, pH of 6.99, PaCO2 of 43, pO2 of 73. Electrolytes were noted. BUN and creatinine elevated. Potassium was elevated. Lactic acid was elevated. Blood sugar was elevated. AST and ALT are markedly elevated. Chest x-ray reviewed. There is increased bilateral airspace disease. IMPRESSION: 1. Acute respiratory failure secondary to [id number] cardiopulmonary arrest. 2. Enb-fv-hsqidpaj cardiopulmonary arrest secondary to ventricular tachycardia. 3. Anoxic brain injury. 4. Suspect brain . 5. Acute pulmonary edema secondary to acute systolic heart failure. 6. Suspect severe metabolic acidosis secondary to diabetic ketoacidosis and cardiogenic shock. 7. Cardiogenic shock. 8. Multiorgan failure. 9. Liver shock. PLAN: 1. Nursing staff informed me that they are unable to contact any family members, I suspect clinically the patient is brain . 2. We will await Dr. Pickering's input, neurologist on ultimate diagnosis of brain . 3. Continue current support. 4. The patient is not expected to survive. 5. Follow Cardiology input. I do appreciate the privilege in sharing in the patient's care. DAVID/GRISELDA DR: Soy TID: [id number]
--- NOTE | 2021-03-31 21:26 | PDOC3 ---
[facility]-Discharge Summary Date of Admission: Date of Admission: Mar 26, 2021 Date of Discharge: Date of Discharge: Mar 27, 2021 Discharge Diagnosis: Discharge Diagnosis: Septic shock Cardiogenic shock Status post cardiac arrest, at least 1 hour until ROSC Acute respiratory failure requiring intubation Bilateral pneumonia right greater than left, gram-negative organisms, possible aspiration Hemodynamically unstable V. tach/V. fib DKA Anion gap metabolic acidosis LISSETTE due to vasomotor nephropathy Acute electrolyte derangementshyponatremia, hypochloremia, hypermagnesemia, hypocalcemia due to abnormal renal function Severe transaminitis due to shock liver Lactic acidosis Hospital Course: Hospital Course: 60-year-old male with past medical history of CAD, hypertension, dyslipidemia, diabetes who arrived at [facility] ER status post code and ongoing resuscitation. EMS was called at an apartment by a silver designer for an unwitnessed arrest with last known well time being about 40 minutes before EMS arrived. Apparently, the presentation manager noticed leaking water under the door and they were knocking on the door for about 35 minutes without response. Patient was found down and unresponsive and PEA. ACLS was started. Epinephrine was given 5 times and lactated Ringer's was given. Patient had ROSC obtained while in the ambulance and after 2 minutes of ROSC he went into V. fib and 3 times shocks was given and ROSC he was developed again. Upon arrival in the ED patient was kept on multiple vasopressors and family was contacted without any success. Upon arrival to [facility], patient was on multiple vasopressors, no appropriate response, no sedation, intubated on mechanical vent and very acidotic with multiorgan failure. Once again no family was able to be contacted. Patient time of is 1221 on 03/27/21. Around 1200, pt became bradycardic, Dr. Menon and Dr. Pickering at bedside and they decided to make pt a DNR. No known family to contact, only pt belonging is an insulin pump, will be placed in body bag. MTN notified of cardiac time of , pt deemed to be a tissue and eye candidate. Referral number [id number]. Nursing pilot supervisor notified. Disposition: Disposition/Orders: Activity: Activity: Resume previous activity Total Time: Total Time: Total time spent was 36 minutes in preparing scripts and discharge planning with SW and RN Patient seen and examined on day of Discharge. Justicifation of Admission Dx: Justifications for Admission: Justification of Admission Dx: Yes Respiratory Failure: Severe Resp Distress Chronic Renal Failure: Cardiac Arrhythmias ELLI FOSTER MD Mar 31, 2021 21:26
== END 2021-03-27 12:21 | DRG 871 ==
LOC: 1 WEST ICU 17:16
PROVIDERS: ADMIT Internal Medicine; ATTEND Internal Medicine
PROC: 5A1935Z Respiratory Ventilation, Less than 24 Consecutive Hours (ICD-10-PCS; principal; 2021-03-26)
PROC: 0BH17EZ Insertion of Endotracheal Airway into Trachea, Via Natural or Artificial Opening (ICD-10-PCS; 2021-03-26)
DX: A41.9 Sepsis, unspecified organism (principal); E11.10 Type 2 diabetes mellitus with ketoacidosis without coma; I50.21 Acute systolic (congestive) heart failure; J96.00 Acute respiratory failure, unspecified whether with hypoxia or hypercapnia; K72.00 Acute and subacute hepatic failure without coma; N17.0 Acute kidney failure with tubular necrosis; R65.21 Severe sepsis with septic shock; J15.6 Pneumonia due to other Gram-negative bacteria; E87.1 Hypo-osmolality and hyponatremia; G93.1 Anoxic brain damage, not elsewhere classified; I47.2 Ventricular tachycardia; E78.5 Hyperlipidemia, unspecified; E83.41 Hypermagnesemia; E83.51 Hypocalcemia; E87.8 Other disorders of electrolyte and fluid balance, not elsewhere classified; I11.0 Hypertensive heart disease with heart failure; I25.10 Atherosclerotic heart disease of native coronary artery without angina pectoris; I46.2 Cardiac arrest due to underlying cardiac condition; I49.01 Ventricular fibrillation; K80.20 Calculus of gallbladder without cholecystitis without obstruction; R57.0 Cardiogenic shock; Z66 Do not resuscitate; Z79.4 Long term (current) use of insulin; E66.9 Obesity, unspecified
CPT/HCPCS: 36415; 36600; 71045; 80048; 80053; 82805; 82962; 83605; 83735; 84100; 85007; 85025; 93308; 94002; J0171; J1815; J1940; J2250; J2370; J3490; J7030; J7042; J7050; J7060; G0378